=== PATIENT | male | born 1985 | race Caucasian/White ===

== ENCOUNTER → 2024-01-02 10:04 | Outpatient (REF) | payer OTHER, SELFPAY | LOC: RAD 10:04 | PROVIDERS: ATTENDING PHYSICIAN Physician Assistant | DX: R05.1 Acute cough (principal) | CPT/HCPCS: 71046 ==

== ENCOUNTER 2024-08-15 15:37 | Inpatient (IN) | payer OTHER, SELFPAY ==
[2024-08-15] VITALS (25 sets, daily range): BP systolic 90–140; BP diastolic 45–103; BMI 32.5
--- NOTE | 2024-08-15 16:00 | PTCARENOTE ---
Received patient from [facility] on stretcher. Denies chest pain at present. VSS. Placed on monitor. Labs obtained. Radial band on RT radial site. Hand with good cap refill. Nitro drip infusing on admission . Settled into room
--- NOTE | 2024-08-15 16:08 | CON.CAR ---
Addendum entered and electronically signed by Janes Montoya MD 08/16/24 08:05:
Please use as H&P
Addendum entered and electronically signed by Janes Montoya MD 08/15/24 17:19:
I saw and examined the patient.
The Wood Tank Erector's note was reviewed and I agree with the note.
Comment: Briefly, 39-year-old man past medical history of hypertension, hyperlipidemia and strong family history of premature CAD who presented to [facility] with chest discomfort and found to have severe range blood pressures. Troponin was
elevated and patient was medically managed with heparin drip as well as IV nitroglycerin and loaded with aspirin/Plavix. Echo from [place] reportedly with LVEF 48% and inferolateral hypokinesis. He underwent invasive coronary angiography today and
was found to have multivessel coronary disease. Patient subsequently transferred here for CT surgery evaluation.
At present he is resting comfortably in bed in the CVICU, eating [employer]
Not experiencing any chest discomfort at present
Currently on nitro drip, explained that we can uptitrate if chest pain recurs
Continue aspirin
Maintain on heparin drip while here
Awaiting Plavix washout
High intensity statin
Beta-lucas
Appreciate CT surgery input regarding possible revascularization
Discussed with CT surgery team as well as spouse at bedside
Rest per Xuan Herbert
Original Note:
Consultation
Consultation Request
Date/Time Consultation Requested: 08/15/2024
Date/Time Consultation Performed: 08/15/2024
Performing Provider: Xuan Herbert PA-C for Dr. Montoya
Reason for Consultation: Multivessel coronary artery disease, NSTEMI
Medical History
-
History of Present Illness:
This serves as admission H&P
Patient is a 39-year-old male with past medical history significant for hypertension, hyperlipidemia, prior opioid/substance abuse, current vaping of nicotine, hepatitis C and family history of coronary artery disease with father dying of [place] in his
early 30s who presented to [facility] on 08/15/2024 with chest pain with radiation to left arm and lightheadedness x 2 days. Patient's blood pressure on arrival 225/145. Initial EKG showed sinus rhythm with no significant changes. Patient
was found to have abnormal troponin and was placed on nitro drip, heparin drip and loaded with Plavix 600 mg and aspirin 325 mg and ED. Patient underwent urgent [facility] cardiac catheterization and was found to have multivessel coronary
artery disease. Patient then transferred to [facility] for CT surgery evaluation.
At time of this evaluation patient is on IV heparin and nitroglycerin. He is chest pain-free.
Past medical history:
Hyperlipidemia
Hypertension
GERD
Hepatitis C
Opioid abuse, last use February 2013
Kidney stone s/p extraction
Strong family history of premature CAD
Past Medical History
Past Medical History: Other (See HPI)
Past Surgical History: Appendectomy, Cholecystectomy and Other (Kidney stone extraction)
Social History
Tobacco: Vaping (former tobacco but currently vapes)
Alcohol: None
Drug: Former User (Heroin with reported last use February 2013)
Personal:
Living: With Family ( and son)
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
Family History
Family History: Early CAD (Dad had first coronary event at age 24, of [place] in early 30's)
Allergies / Home Medications
Allergy/AdvReac Type Severity Reaction Status Date / Time
No Known Allergies Allergy Verified 11/01/21 11:18
�Medication �Instructions �Recorded �Confirmed �Type
Heroin DAILY 02/20/13 02/20/13 History
ibuprofen 600 mg tablet 600 mg PO Q6H #30 tabs 01/09/15 Rx
cyclobenzaprine 10 mg tablet 10 mg PO TIDPRN PRN muscle spasm 12/22/15 Rx
#15 tabs
prednisone 10 mg tablet 10 mg PO DAILY 12 days 12/22/15 Rx
cyclobenzaprine 10 mg tablet 10 mg PO TIDPRN PRN back pain #30 08/14/16 Rx
tabs
prednisone 20 mg tablet 40 mg (2 x 20 mg) PO DAILY #8 tabs 06/25/16 Rx
Review of Systems
-
History Source: Patient
All other systems: Negative unless noted
Physical Exam
Vital Signs
Temp Pulse Resp BP Pulse Ox
97.4 F 77 16 108/71 96
08/15/24 15:47 08/15/24 15:47 08/15/24 15:47 08/15/24 15:47 08/15/24 15:47
GEN: No distress, awake, Ox3
HEENT: supple, anicteric, mmm
LUNGS: CTA, no wheezes/rales
CV: Reg, S1/S2, no murmur, rub or gallop
ABD: soft, BS+, NT/ND
EXT: No edema, clubbing or cyanosis
NEURO: Gross non-focal
SKIN: No rash, warm, dry, pink
Lab Results
Pending
Labs reviewed from [facility]
Impression / Plan
-
PCP: Marya Dior
Pattern Designer: Dr. Traylor
Impression:
Presented to [facility] 08/15/2024 with severe chest pain radiating into left arm and lightheadedness x 2 days
Hypertensive urgency
NSTEMI with Abnormal troponin
Multivessel coronary artery disease on cath 08/15/[address] chest/abd/pelvis
Hyperlipidemia
Hypertension
Hepatitis C
Prior Opioid/substance abuse
Kidney stone
History of noncompliance
Strong family history of premature CAD
Echo 08/15/2024 ([facility]): EF 48% with global hypokinesis more pronounced inferolaterally.� Concentric remodeling of LV.� Right ventricular cavity size at upper limits of normal with low normal systolic function.� Normal biatrial size.� No significant
valvular disease.
Cardiac catheterization 08/15/2024 ([facility]): LM: NL.� LAD proximal 30% followed by mid 90% stenosis.� Ramus: Proximal 95% stenosis with some ostial involvement.� Left circumflex mid 60 to 70% stenosis followed by ectatic dilation.� OM mid 70 to 80%
stenosis involving distal bifurcation.� RCA: Heavily calcified with severe disease proximal 60 to 70% and mid 80 to 90% at acute marginal
Plan:
-Presented to [facility] 08/15/2024 with severe chest pain radiating into left arm and lightheadedness x 2 days
-Abnormal troponin/NSTEMI, continue to trend to peak. Check EKG and follow on tele
-Found to have multivessel coronary artery disease on cardiac catheterization. CTS consult placed.
-Patient did get 600 mg of Plavix and 325 mg of aspirin at [place] emergency department 08/15/2024. Continue daily baby ASA. Allow for Plavix washout
-Continue IV nitroglycerin, titrate as needed for chest pain
-Start IV heparin drip per ACS protocol
-Echo as noted above shows mildly reduced ejection fraction. Patient does not have evidence of heart failure or acute volume overload on examination.
-Start Toprol 25 mg daily. Patient will need eventual LENNY/ARB. Hold now in anticipation of CT surgery after Plavix washout
-Check lipids and HgA1c in AM. Start atorvastatin 80 mg
HPI: Patient is a 39-year-old male with past medical history significant for hypertension, hyperlipidemia, prior opioid/substance abuse, current vaping of nicotine, hepatitis C and family history of coronary artery disease with father dying of [place] in
his early 30s who presented to [facility] on 08/15/2024 with chest pain with radiation to left arm and lightheadedness x 2 days. Patient's blood pressure on arrival 225/145. Initial EKG showed sinus rhythm with no significant changes.
Patient was found to have abnormal troponin and was placed on nitro drip, heparin drip and loaded with Plavix 600 mg and aspirin 325 mg and ED. Patient underwent urgent [facility] cardiac catheterization and was found to have multivessel
coronary artery disease. Patient then transferred to [facility] for CT surgery evaluation.
At time of this evaluation patient is on IV heparin and nitroglycerin. He is chest pain-free.
Data Reviewed
-
EKG: Report Reviewed by me, Discussed with Physician, Discussed with Nurse and Discussed with Patient
Medical Tests (Nuc Med, Echo etc): Report Reviewed by me (from [facility]), Discussed with Physician, Discussed with Nurse and Discussed with Patient
Labs: Labs Reviewed by me (from [facility]), Discussed with Physician, Discussed with Nurse, Discussed with Patient and Discussed with Family
[2024-08-15 16:40] LABS: Hematocrit 44.6 % (39.0-52.0); Hemoglobin 15.2 g/dL (13.0-18.0); Mean Corp Hgb Conc. 34.1 g/dL (33.0-37.0); Mean Corpuscular Volume 82.3 fL (80.0-94.0); Mean Platelet Volume 11.2 fL (7.4-10.4); Platelet Count 187 10^3/uL (130-400); Red Blood Cell Count 5.42 10^6/uL (4.70-6.10)
--- NOTE | 2024-08-15 16:41 | CM ---
CM following for DC planning needs.
Pt. transferred to from [facility].
Plan is for CT Surgery.
CM met w/ patient at bedside. Pt. resides with spouse in a private, 1 story home. There are no steps to enter the home. Functionally, patient is indep. w/ ADLs, mobility without the use of any assisted device. Pt. has a RW and SPC at home but does
not use these.
Pt. does not have medical insurance at this time.
[facility]
CM to follow up next wk.
Anticipate DC to home w/ CT Transitional Care RN.
CM to follow.
--- NOTE | 2024-08-15 16:47 | CONSULT.CT ---
Addendum entered and electronically signed by KIAN Fung 08/15/24 19:41:
Edit: patient quit smoker >3yrs ago
Original Note:
Consultation
-
Date/Time Consultation Requested: 08/15/241644
Date/Time Consultation Performed: 08/15/241646
Requesting Provider: Michael Marquis
Performing Provider: Day LANGSTON for Eva HUI
Reason for Consultation: CABG Eval
Patient History
Physicians
Family Physician: Andrew Govea
Outpatient Service Line Bus Cleaner: Michael Marquis
Inpatient Service Line Bus Cleaner: Jack
History of Present Illness
This is a 39-year-old male with past medical history significant for family history CAD (father from [place] at age 30), hypertension, hyperlipidemia, smoker, history of IV drug abuse/opioid dependence, kidney stones, and hepatitis C that presented
to [facility] on 08/14 with complaints of intermittent severe chest pain for the last 2 days. He stated that prior to his admission to [facility] he was having some chest pain that was associated with dizziness and lightheadedness
and he may have syncopized. When he went to [facility] he was found to be hypertensive (225/145) and based on the history they felt that he was at risk for a aortic dissection so he was sent for an emergent CAT scan. CAT scan did not show
an aortic dissection, aneurysm, or pulmonary embolism. EKG was performed which was negative for ischemic changes at the time and initial troponins were negative. Subsequent troponins were were positive so a heparin infusion was started. He was
subsequently taken to the cardiac Cooling Room Attendant by Dr. Marquis. During the left heart cath he was found to have significant coronary artery disease. Nitroglycerin infusion was started for chest pain management and patient was transferred to [place] [facility] for CABG evaluation.
Of note, while in the ER patient was given 600 mg of Plavix. Also the patient was educated on the importance of a heart healthy diet. At the time of my interview patient was eating [employer].
Past Medical History
Past Medical History: Angina, CAD, HTN, Hypercholesterolemia and [place]
untreated hepatitis C ~ 25 yrs ago
opiod dependence 11.5 yrs ago
Past Surgical History
Past Surgical History: Appendectomy
Family History
Mother: N/A
Father: at Age (30)
Family Medical History: Early CAD and CAD
Social History
Alcohol: Former (quit 25 yrs ago)
Drug: Former User (quit 25 yrs ago)
Tobacco: Vaping (quit 25 yrs ago)
Personal:
Living: With Spouse
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
Allergies
Allergy/AdvReac Type Severity Reaction Status Date / Time
No Known Allergies Allergy Verified 11/01/21 11:18
Home Medications
Home Medications
�Medication �Instructions �Recorded
No Meds [No Current Medications] 08/15/24
Review of Systems
-
History Source: Patient
General: Reports No Symptoms
HEENT: Reports No Symptoms
Respiratory: Reports No Symptoms
Cardiac: Reports Chest Pain, Nausea and Vomiting
Abdomen/GI: Reports No Symptoms
: Reports No Symptoms
Musculoskeletal: Reports No Symptoms
Skin: Reports No Symptoms
Neurological: Reports Syncope and Dizzy
Vascular: Reports No Symptoms
Physical Exam
Vital Signs
Temp 97.4 F 08/15/24 15:47
Temp route: Oral 08/15/24 15:47
Pulse 77 08/15/24 15:47
Rhythm: Normal sinus rhythm 08/15/24 15:47
Resp Rate 16 08/15/24 15:47
Blood pressure LEFT upper extremity: 124/85 08/15/24 15:51
Blood pressure RIGHT upper extremity: 133/97 08/15/24 15:51
Blood pressure 108/71 08/15/24 15:47
Blood pressure extremity used: Right upper arm 08/15/24 15:51
Position: Lying 08/15/24 15:51
MAP (cuff-Josesito Monitor) 84 08/15/24 15:42
SaO2 96 08/15/24 15:47
Oxygen Mode of Delivery Room air 08/15/24 15:47
Can the patient verbally communicate their pain? Yes 08/15/24 15:54
Actual Weight 121 kg 08/15/24 16:35
Body Mass Index (BMI) 32.5 08/15/24 16:35
Labs
Lab Results
08/15/24 16:30
PT 13.6 Sec (11.4-14.6) 08/15/24 16:28
INR 1.06 08/15/24 16:28
APTT 58.7 Sec (23.4-35.0) H 08/15/24 16:28
Exam
General: Well Developed and Well Nourished
HEENT: PERRLA
Respiratory: Clear
Cardiac: S1/S2
GI: Soft
Rectal: Deferred by Provider
Skin: Warm and Dry
Neuro: AO x 3
Lymph: No Lymphadenopathy
Psych: Calm
Assessment / Plan
-
39-year-old male with past medical history listed above presented to [facility] with chest pain. Ruled in for a NSTEMI and was taken to the cardiac Cooling Room Attendant where multivessel disease was found. He was transferred to [facility] for
CABG evaluation.
#CAD
#NSTEMI
-Patient's last dose of Plavix was 08/15 (600 mg given by [facility]'s emergency room)
-Patient's case will be discussed with attending physician. Tentative surgery date will be August 20.
-Routine preoperative cardiothoracic surgery orders will be initiated.
-STS risk stratification score will be calculated after preoperative testing is complete
-Continue nitroglycerin and heparin gtt per cardiology
-Continue aspirin
#Hyperlipidemia
-Patient was eating Niuean fries and crispy chicken sandwich from [employer] and he was educated on the importance of a heart healthy diet
-Lipid panel was performed at [facility]
-Continue Lipitor
#Hx of Hepatitis C
- will repeat Hep C in AM
[2024-08-15 16:50] LABS: INR 1.06; PT 13.6 Sec (11.4-14.6)
[2024-08-15 16:51] LABS: APTT 58.7 Sec (23.4-35.0)
--- NOTE | 2024-08-15 17:01 | PTCARENOTE ---
Rt radial hemostasis band removed after weaning off per protocol. Skin warm and dry., Radial pulse palpable.
--- NOTE | 2024-08-15 17:11 | PTCARENOTE ---
Pt c/o 01/19 'shooting star' like pain in middle chest area, states same pain with cold air feeling he had originally. Pt placed on 2 L NC prophylactically.
Nitro drip titrated for chest discomfort.
[2024-08-15] MEDS: HEPARIN 25000 UNITS/250 ML IV (17:23)
[2024-08-15] MEDS: LIPITOR 80 MG PO (17:23)
[2024-08-15 17:28] LABS: Troponin I 0.725 ng/ml
[2024-08-15 17:39] LABS: Blood Urea Nitrogen 16 mg/dl (9-20); Calcium 9.1 mg/dl (8.4-10.2); Carbon Dioxide 25 mmol/L (22-30); Chloride 102 mmol/L (98-107); Estimated Creatinine Clearance > 125 ml/min; Glucose 125 mg/dl (70-99); Potassium 4.1 mmol/L (3.5-5.1); Sodium 140 mmol/L (135-145); eGFR > 60.00
[2024-08-15] MEDS: ZOFRAN 4 MG IV (18:12)
[2024-08-15] MEDS: TYLENOL 650 MG PO (18:17)
--- NOTE | 2024-08-15 18:22 | PTCARENOTE ---
Rang call junior c/o 'extreme' nausea. Pt vomited a large amount of undigested food. IV zofran administered. Pt c/o 8/10 chest pain. Not diaphoretic on exam. VSS. Nitro drip increased as able. Pt then c/o head ache, given tylenol as ordered.
CT BARREL LATHE OPERATOR in room . EKG obtained. Resting.
[2024-08-15] MEDS: PROTONIX IV 40 MG IV (18:34)
[2024-08-15] MEDS: NSS (PRESERVATIVE FREE) 10 ML IV (18:35)
[2024-08-15] MEDS: MORPHINE SULFATE 2 MG IV ×2 (18:39→22:22)
--- NOTE | 2024-08-15 20:30 | PTCARENOTE ---
Patient received in bed. Mildly restless. No c/o chest pain. Patient A+A+Ox3. No neurological deficits noted. IV Heparin gtt and IV Nitro gtt. Room air. SpO2 99%. No c/o SOB. Sinus Rhythm. Heart rate 80's. Blood pressure 128/68 (85).
Normoactive bowel sounds. No c/o nausea. No vomiting. Voiding without difficulty. Assessment as documented.
[2024-08-15 22:27] LABS: APTT 43.4 Sec (23.4-35.0)
--- NOTE | 2024-08-15 23:00 | PTCARENOTE ---
Troponin result 1.010. PTT result 43.4. In accordance with IV Heparin protocol for Cardiac TX/Acute Coronary, IV Heparin rate increased by 200 units/hr from 1,000 units/hr (10 ml/hr) to 1,200 units/hr (12 ml/hr). PTT in 6hrs. Patient sleeping
without difficulty. Assessment as documented.
[2024-08-16] VITALS (24 sets, daily range): BP systolic 79–144; BP diastolic 61–114; BMI 32.9
[2024-08-16] MEDS: LOPRESSOR 5 MG IV ×4 (00:25→17:34)
[2024-08-16] MEDS: TYLENOL 650 MG PO ×3 (01:26→19:41)
[2024-08-16] MEDS: ATIVAN 0.5 MG IV (01:27)
[2024-08-16] MEDS: NSS (PRESERVATIVE FREE) 0.25 ML IV (01:28)
--- NOTE | 2024-08-16 02:00 | PTCARENOTE ---
Patient given IV Ativan 0.5mg for c/o anxiety - Positive relief provided. Patient back to sleep. No c/o chest pain, pressure or discomfort. Troponin 1.090. No further changes from previous assessment.
[2024-08-16] MEDS: MORPHINE SULFATE 2 MG IV ×3 (05:32→19:42)
[2024-08-16 05:47] LABS: APTT 52.2 Sec (23.4-35.0)
[2024-08-16 05:58] LABS: ALT (SGPT) 31 U/L (0-50); AST (SGOT) 35 U/L (17-59); Albumin 3.6 g/dl (3.5-5.0); Alkaline Phosphatase 82 U/L (38-126); Blood Urea Nitrogen 15 mg/dl (9-20); Calcium 8.7 mg/dl (8.4-10.2); Carbon Dioxide 26 mmol/L (22-30); Chloride 102 mmol/L (98-107); Estimated Creatinine Clearance > 125 ml/min; Glucose 95 mg/dl (70-99); HDL Cholesterol 38 mg/dl; LDL Cholesterol, Calculated 194 mg/dl; Potassium 4.2 mmol/L (3.5-5.1); Sodium 138 mmol/L (135-145); Total Bilirubin 0.4 mg/dl (0.2-1.3); Total Cholesterol 254 mg/dl (50-199); Total Protein 6.6 g/dl (6.3-8.2); Triglyceride 111 mg/dl (10-149); Very Low Density Lipoprotein 22 mg/dl (0-30); eGFR > 60.00
[2024-08-16 06:00] LABS: Troponin I 0.909 ng/ml
--- NOTE | 2024-08-16 08:00 | PTCARENOTE ---
Received patient for 7a-7p shift. Pt AAOx3, without complaints. NSR on monitoring specialist, VSS. Nitro gtt at 40mcg/min, Heparin gtt at 1400u/hr, infusing via PIV in L lower forearm without issues. Patient denies chest pain at this time. R radial cath
site c/d/i, normal pulse palpable, no hematoma noted. Medications administered as ordered. Instructed patient on activity limitations, patient verbalized understanding. Will continue to monitor.
--- NOTE | 2024-08-16 08:47 | W.PN.CARDCBS ---
Addendum entered and electronically signed by Janes Montoya MD 08/16/24 18:33:
I saw and examined the patient.
The Executive Business Coach's note was reviewed and I agree with the note.
Comment: Briefly, 39-year-old man presented to [facility] with NSTEMI transferred to [place] for surgical evaluation
Episode of chest pain yesterday evening but no complaints this morning when evaluated on morning rounds
Continue IV nitro, can uptitrate for worsening chest gain
Heparin drip, aspirin, BB and high intensity statin
Appreciate CT surgery input
Original Note:
Today's Communication / Plan
-
Continue IV heparin and IV nitroglycerin
Continue aspirin, statin, Toprol
For PFTs and carotid duplex
Tentative OR date 08/20/2024 after Plavix washout
Impression / Plan
-
PCP: Marya Dior
Repairer Hairspring: Dr. Traylor
Impression:
Presented to [facility] 08/15/2024 with severe chest pain radiating into left arm and lightheadedness x 2 days
Hypertensive urgency
NSTEMI with Abnormal troponin
Multivessel coronary artery disease on cath 08/15/[address] chest/abd/pelvis
Hyperlipidemia
Hypertension
Hepatitis C
Prior Opioid/substance abuse
Kidney stone
History of noncompliance
Strong family history of premature CAD
Echo 08/15/2024 ([facility]): EF 48% with global hypokinesis more pronounced inferolaterally.� Concentric remodeling of LV.� Right ventricular cavity size at upper limits of normal with low normal systolic function.� Normal biatrial size.� No significant
valvular disease.
Cardiac catheterization 08/15/2024 ([facility]): LM: NL.� LAD proximal 30% followed by mid 90% stenosis.� Ramus: Proximal 95% stenosis with some ostial involvement.� Left circumflex mid 60 to 70% stenosis followed by ectatic dilation.� OM mid 70 to 80%
stenosis involving distal bifurcation.� RCA: Heavily calcified with severe disease proximal 60 to 70% and mid 80 to 90% at acute marginal
Plan:
-Presented to [facility] 08/15/2024 with severe chest pain radiating into left arm and lightheadedness x 2 days
-Still with some intermittent epigastric/chest discomfort. Seems to occur more at rest than with exertion
-Abnormal troponin/NSTEMI, peak 1.090.Continue to monitor on tele
-Found to have multivessel coronary artery disease on cardiac catheterization.Evaluated by CT surgery who feels he is good candidate for CABG. Tentative OR date 08/30/2024 to allow for Plavix washout.
-Preop evaluation ongoing with PFTs and carotid duplex ordered
-Patient did get 600 mg of Plavix and 325 mg of aspirin at [place] emergency department 08/15/2024. Continue daily baby ASA. Allow for Plavix washout
-Continue IV nitroglycerin, titrate as needed for chest pain
-Continue IV heparin drip per ACS protocol
-Echo as noted above shows mildly reduced ejection fraction. Patient does not have evidence of heart failure or acute volume overload on examination.
-Continue Toprol 25 mg daily. Patient will need eventual LENNY/ARB. Hold now in anticipation of CT surgery 08/20 after Plavix washout
-Prestatin lipids 08/16/2024 TC 254, HDL 38, LDL 194, triglycerides 111. Started atorvastatin 80 mg 08/15/2024.
-Hemoglobin A1c pending
-Educated on importance of smoking cessation as history of vaping. Also discussed importance of adhering to heart healthy low-fat/low carbohydrate diet.
HPI: Patient is a 39-year-old male with past medical history significant for hypertension, hyperlipidemia, prior opioid/substance abuse, current vaping of nicotine, hepatitis C and family history of coronary artery disease with father dying of [place] in
his early 30s who presented to [facility] on 08/15/2024 with chest pain with radiation to left arm and lightheadedness x 2 days. Patient's blood pressure on arrival 225/145. Initial EKG showed sinus rhythm with no significant changes.
Patient was found to have abnormal troponin and was placed on nitro drip, heparin drip and loaded with Plavix 600 mg and aspirin 325 mg and ED. Patient underwent urgent [facility] cardiac catheterization and was found to have multivessel
coronary artery disease. Patient then transferred to [facility] for CT surgery evaluation.
At time of this evaluation patient is on IV heparin and nitroglycerin. He is chest pain-free.
Progress Note - Repairer Hairspring
Subjective
Date of Service: August 16, 2024
Still with some intermittent epigastric/chest discomfort. Seems to occur more at rest than with exertion. Otherwise feels well
Objective
Labs:
08/15/24 16:43
08/16/24 05:18
Labs
Hgb Cancelled 08/15/24 16:43
Hct Cancelled 08/15/24 16:43
Plt Count Cancelled 08/15/24 16:43
PT 13.6 Sec (11.4-14.6) 08/15/24 16:28
INR 1.06 08/15/24 16:28
APTT 52.2 Sec (23.4-35.0) H 08/16/24 05:18
Sodium 138 mmol/L (135-145) 08/16/24 05:18
Potassium 4.2 mmol/L (3.5-5.1) 08/16/24 05:18
BUN 15 mg/dl (9-20) 08/16/24 05:18
Creatinine 1.1 mg/dL (0.7-1.3) 08/16/24 05:18
Glucose 95 mg/dl (70-99) 08/16/24 05:18
Troponins
08/15/24 08/15/24 08/15/24
16:48 18:33 22:04
Troponin I 0.725 H* Cancelled 1.010 H* D
08/15/24 08/16/24 08/16/24
22:33 01:42 05:18
Troponin I Cancelled 1.090 H* 0.909 H*
Vital Signs and I&O:
Vital Signs
Temp Pulse Resp BP Pulse Ox
98.2 F 77 16 10484 97
08/16/24 04:00 08/16/24 07:00 08/16/24 05:00 08/16/24 07:00 08/16/24 05:00
Vital Signs
Temp Pulse Resp BP Pulse Ox
98.2 F 77 16 10484 97
08/16/24 04:00 08/16/24 07:00 08/16/24 05:00 08/16/24 07:00 08/16/24 05:00
Intake & Output
08/14/24 08/15/24 08/16/24 08/17/24
06:59 06:59 06:59 06:59
Intake Total 715.0 / 715.0
Output Total 750 / 750
Balance -35.0 / -35.0
Physical Exam
Physical Exam
GEN: No distress, awake, Ox3
HEENT: supple, anicteric, mmm
LUNGS: CTA, no wheezes/rales
CV: Reg, S1/S2, no murmur, rub or gallop
ABD: soft, BS+, NT/ND
EXT: No edema, clubbing or cyanosis
NEURO: Gross non-focal
SKIN: No rash, warm, dry, pink
[2024-08-16] MEDS: LOW STRENGTH ASPIRIN 81 MG PO (08:55)
[2024-08-16] MEDS: TOPROL XL PO (08:55)
[2024-08-16] MEDS: PROTONIX IV 40 MG IV (08:56)
[2024-08-16] MEDS: NSS (PRESERVATIVE FREE) 10 ML IV (09:00)
--- NOTE | 2024-08-16 09:30 | W.PN.UPDATE ---
Update Note
Progress Note Update
Patient seen with Dr. Velasquez this morning. cont Heparin and ntg gtt was CP free at the time. Tentative surgery date is monday 08/20.
[2024-08-16 10:14] LABS: Glycohemoglobin (HgbA1c) 5.4 % (4.0-5.6)
[2024-08-16 12:26] LABS: Hematocrit 40.6 % (39.0-52.0); Hemoglobin 14.7 g/dL (13.0-18.0); Mean Corp Hgb Conc. 36.2 g/dL (33.0-37.0); Mean Corpuscular Hgb 29.2 pg (27.0-31.0); Mean Corpuscular Volume 80.7 fL (80.0-94.0); Mean Platelet Volume 11.7 fL (7.4-10.4); Platelet Count 122 10^3/uL (130-400); Red Blood Cell Count 5.03 10^6/uL (4.70-6.10); Red Cell Dist. Width 12.4 % (11.5-14.5); White Blood Cell Count 5.6 10^3/uL (4.8-10.8)
[2024-08-16 12:33] LABS: APTT 44.9 Sec (23.4-35.0)
[2024-08-16 12:37] LABS: Troponin I 0.713 ng/ml
[2024-08-16] MEDS: HEPARIN 25000 UNITS/250 ML IV (13:07)
--- NOTE | 2024-08-16 13:10 | PTCARENOTE ---
Platelets dropped from 187 yesterday [address] Montoya aware, orders to continue heparin drip per protocol as ordered. Will continue to monitor.
[2024-08-16] MEDS: NITROGLYCERIN PREMIX 250 IV (13:11)
[2024-08-16] MEDS: LIPITOR 80 MG PO (17:34)
--- NOTE | 2024-08-16 17:44 | PTCARENOTE ---
Patient maintained on Nitro at 40 mcg/min and Heparin at 1600 units/hr via L forearm piv without issues. VSS, oob in chair, family at bedside. Medications administered as ordered. Will continue to monitor.
[2024-08-16 18:59] LABS: APTT 69.7 Sec (23.4-35.0)
--- NOTE | 2024-08-16 19:19 | TRANSFER ---
Patient transferred from CVICU 0 to IVU room 2252. Pt ambulated to room with RN, placed on IVU monitor tech, tolerated without issues. VSS. All belongings and chart transferred with patient. Report given to receiving IVU RN jorge Sosa
rounds complete and IV drips verified with receiving RN in handoff. Patient's at bedside at time of transfer.
--- NOTE | 2024-08-16 21:50 | PTCARENOTE ---
Pt received at change of shift from SYNTHETIC DEPARTMENT SUPERVISOR. ISIDRA, EDGARR on tele with HR 70s-80s. Nitro gtt currently infusing at 40mcg and Heparin at 1700units. No complaints of CP at this time. Pt with complaints of 8/10 back pain radiating down leg which he
states is a chronic issue. PRN pain medication administered per orders, see MAR. Pt ambulating independently in room without difficulty. Plan of care discussed and pt. verbalizes understanding, however refusing printed educational materials at
this time. Can make needs known. Call junior within reach.
[2024-08-17 01:13] VITALS: BP 159/100
[2024-08-17] MEDS: ATIVAN 0.5 MG IV (01:17)
[2024-08-17] MEDS: TYLENOL 650 MG PO ×3 (01:17→16:34)
[2024-08-17] MEDS: NSS (PRESERVATIVE FREE) 0.25 ML IV (01:18)
[2024-08-17 02:55] LABS: APTT 100.2 Sec (23.4-35.0)
[2024-08-17 03:10] LABS: Hemoglobin 14.2 g/dL (13.0-18.0); Mean Corp Hgb Conc. 35.5 g/dL (33.0-37.0); Mean Corpuscular Hgb 28.2 pg (27.0-31.0); Mean Corpuscular Volume 79.5 fL (80.0-94.0); Mean Platelet Volume 11.4 fL (7.4-10.4); Platelet Count 167 10^3/uL (130-400); Red Blood Cell Count 5.03 10^6/uL (4.70-6.10); Red Cell Dist. Width 12.7 % (11.5-14.5); White Blood Cell Count 6.5 10^3/uL (4.8-10.8)
[2024-08-17] MEDS: HEPARIN 25000 UNITS/250 ML IV ×2 (03:43→18:52)
[2024-08-17 03:58] LABS: Blood Urea Nitrogen 15 mg/dl (9-20); Calcium 8.8 mg/dl (8.4-10.2); Carbon Dioxide 26 mmol/L (22-30); Chloride 102 mmol/L (98-107); Estimated Creatinine Clearance > 125 ml/min; Glucose 96 mg/dl (70-99); Sodium 138 mmol/L (135-145); eGFR > 60.00
[2024-08-17 07:17] VITALS: BP 132/83
[2024-08-17] MEDS: LOW STRENGTH ASPIRIN 81 MG PO (08:17)
[2024-08-17] MEDS: TOPROL XL 25 MG PO (08:18)
[2024-08-17] MEDS: MORPHINE SULFATE 2 MG IV ×3 (08:35→20:50)
[2024-08-17] MEDS: PROTONIX IV 40 MG IV (08:44)
[2024-08-17] MEDS: SENOKOT-S 1 TABLET PO (08:44)
[2024-08-17] MEDS: NSS (PRESERVATIVE FREE) 10 ML IV (08:45)
[2024-08-17 09:30] LABS: APTT 91.3 Sec (23.4-35.0)
[2024-08-17 12:13] VITALS: BP 108/64
--- NOTE | 2024-08-17 12:53 | W.PN.CARDCBS ---
Today's Communication / Plan
-
Continue aspirin, high intensity statin, beta-lucas and heparin drip
Impression / Plan
-
PCP: Marya Dior
Shift Supervisor: Dr. Traylor
Impression:
Presented to [facility] 08/15/2024 with severe chest pain radiating into left arm and lightheadedness x 2 days
Hypertensive urgency
NSTEMI with Abnormal troponin
Multivessel coronary artery disease on cath 08/15/[address] chest/abd/pelvis
Hyperlipidemia
Hypertension
Hepatitis C
Prior Opioid/substance abuse
Kidney stone
History of noncompliance
Strong family history of premature CAD
Echo 08/15/2024 ([facility]): EF 48% with global hypokinesis more pronounced inferolaterally.� Concentric remodeling of LV.� Right ventricular cavity size at upper limits of normal with low normal systolic function.� Normal biatrial size.� No significant
valvular disease.
Cardiac catheterization 08/15/2024 ([facility]): LM: NL.� LAD proximal 30% followed by mid 90% stenosis.� Ramus: Proximal 95% stenosis with some ostial involvement.� Left circumflex mid 60 to 70% stenosis followed by ectatic dilation.� OM mid 70 to 80%
stenosis involving distal bifurcation.� RCA: Heavily calcified with severe disease proximal 60 to 70% and mid 80 to 90% at acute marginal
Plan:
-Presented to [facility] 08/15/2024 with severe chest pain radiating into left arm and lightheadedness x 2 days
-Abnormal troponin/NSTEMI, peak 1.090.
-Found to have multivessel coronary artery disease on cardiac catheterization.
-Appreciate CT surgery input, Tentative OR for CABG this week following Plavix washout
-Still with some intermittent chest pains/arm pain, maintained on nitro gtt, PRN morphine ordered
-Monitor on tele
-[id number] daily, BB, high intensity statin and heparin gtt
-Echo as noted above shows mildly reduced ejection fraction. Patient does not have evidence of heart failure or acute volume overload on examination.
Discussed with nursing
HPI: Patient is a 39-year-old male with past medical history significant for hypertension, hyperlipidemia, prior opioid/substance abuse, current vaping of nicotine, hepatitis C and family history of coronary artery disease with father dying of [place] in
his early 30s who presented to [facility] on 08/15/2024 with chest pain with radiation to left arm and lightheadedness x 2 days. Patient's blood pressure on arrival 225/145. Initial EKG showed sinus rhythm with no significant changes.
Patient was found to have abnormal troponin and was placed on nitro drip, heparin drip and loaded with Plavix 600 mg and aspirin 325 mg and ED. Patient underwent urgent [facility] cardiac catheterization and was found to have multivessel
coronary artery disease. Patient then transferred to [facility] for CT surgery evaluation.
At time of this evaluation patient is on IV heparin and nitroglycerin. He is chest pain-free.
Progress Note - Shift Supervisor
Subjective
Date of Service: August 17, 2024
No acute overnight events. Patient resting comfortably in the IVU, no recurrence of his chest discomfort. He is reporting some intermittent arm and leg pain. Breathing is comfortable. Has been ambulating without significant symptoms.
Objective
Labs:
08/17/24 02:30
08/17/24 02:30
Labs
Hgb 14.2 g/dL (13.0-18.0) 08/17/24 02:30
Hct 40.0 % (39.0-52.0) 08/17/24 02:30
Plt Count 167 10^3/uL (130-400) D 08/17/24 02:30
PT 13.6 Sec (11.4-14.6) 08/15/24 16:28
INR 1.06 08/15/24 16:28
APTT 91.3 Sec (23.4-35.0) H 08/17/24 09:07
Sodium 138 mmol/L (135-145) 08/17/24 02:30
Potassium 4.0 mmol/L (3.5-5.1) 08/17/24 02:30
BUN 15 mg/dl (9-20) 08/17/24 02:30
Creatinine 0.9 mg/dL (0.7-1.3) 08/17/24 02:30
Glucose 96 mg/dl (70-99) 08/17/24 02:30
Troponins
08/15/24 08/15/24 08/15/24
16:48 18:33 22:04
Troponin I 0.725 H* Cancelled 1.010 H* D
08/15/24 08/16/24 08/16/24
22:33 01:42 05:18
Troponin I Cancelled 1.090 H* 0.909 H*
08/16/24 08/16/24
09:00 11:55
Troponin I Cancelled 0.713 H*
Vital Signs and I&O:
Vital Signs
Temp Pulse Resp BP Pulse Ox
98.3 F 90 20 132/83 98
08/17/24 12:11 08/17/24 08:00 08/17/24 12:11 08/17/24 07:17 08/17/24 12:11
Vital Signs
Temp Pulse Resp BP Pulse Ox
98.3 F 90 20 132/83 98
08/17/24 12:11 08/17/24 08:00 08/17/24 12:11 08/17/24 07:17 08/17/24 12:11
Intake & Output
08/15/24 08/16/24 08/17/24 08/18/24
06:59 06:59 06:59 06:59
Intake Total 715.0 / 715.0 782 / 782
Output Total 750 / 750 1440 / 1440
Balance -35.0 / -35.0 -658 / -658
Physical Exam
Physical Exam
Gen: NAD, AAOx3
HEENT: NC/AT, sclera anicteric
Neck: No JVD
CV: RRR, NL s1/s2, no M/R/G
Lungs: CTAB
Abd: S/ND
Ext: No LE edema
Skin: Warm, dry
Neuro: Non-focal
--- NOTE | 2024-08-17 15:54 | PTCARENOTE ---
Pt received this am with no c/o of any chest pain or sob. Pt did c/o of left arm, hand and bilateral leg pain to hips taking IV morphine 2mg with relief. Medicated this am with 2 tylenol for c/o of a headache with relief. Pt ambulating in the room
and hallway.
[2024-08-17 16:20] VITALS: BP 157/73
[2024-08-17] MEDS: LIPITOR 80 MG PO (17:11)
--- NOTE | 2024-08-17 19:17 | PTCARENOTE ---
Pt c/o of sever headache, medicated with tylenol as ordered with no relief. Pt not due for the q6 hour morphine at this time. Nitro decreased to 20mcg.
[2024-08-17 20:52] VITALS: BP 146/83
--- NOTE | 2024-08-17 23:08 | PTCARENOTE ---
Pt remains SR on tele with HR 80s-90s. Heparin currently infusing at 1700units/hr and Nitro at 20mcg/min. Pt with complaints of 10/10 headache. Morphine administered per order, see MAR. No complaints of CP at this time. R radial cath site c/d/i
with no complications noted. Pt ambulating independently in room. Can make needs known. Call junior within reach.
[2024-08-17 23:15] VITALS: BP 133/70
[2024-08-18] VITALS (8 sets, daily range): BP systolic 108–177; BP diastolic 73–106; BMI 32.4
[2024-08-18] MEDS: ATIVAN 0.5 MG PO ×2 (00:55→22:16)
[2024-08-18] MEDS: TYLENOL 650 MG PO ×2 (05:27→18:36)
[2024-08-18] MEDS: NITROGLYCERIN PREMIX 250 IV (05:28)
[2024-08-18 05:45] LABS: APTT 98.7 Sec (23.4-35.0)
[2024-08-18] MEDS: MORPHINE SULFATE 2 MG IV ×3 (05:55→20:49)
[2024-08-18 06:38] LABS: Blood Urea Nitrogen 10 mg/dl (9-20); Carbon Dioxide 22 mmol/L (22-30); Chloride 103 mmol/L (98-107); Estimated Creatinine Clearance > 125 ml/min; Glucose 100 mg/dl (70-99); Potassium 4.4 mmol/L (3.5-5.1); Sodium 137 mmol/L (135-145); eGFR > 60.00
--- NOTE | 2024-08-18 08:05 | W.PN.CARDCBS ---
Addendum entered and electronically signed by Susana Peck DO 08/18/24 12:38:
I saw and examined the patient.
The Anthropometrist's note was reviewed and I agree with the note.
Comment: Patient seen and examined. Offers no complaints although does have headaches upon awakening in the morning. No headache at present. No chest pain or pressure. No shortness of breath.
General: No acute distress, AAOX3
Neck: Negative JVD
Heart: Regular, positive S1/S2, no murmur
Lungs: CTA b/l, negative wheezes/rales/rhonchi
Abd: Positive BS, NT/ND, neg rebound/rigidity/guarding
Ext: no edema
Neuro: nonfocal
Plan:
Plan:
Non-STEMI with multivessel coronary artery disease by cardiac catheterization 08/15/2024
-Hemodynamically stable and chest pain-free
-Received 600 mg Plavix in the emergency department prior to cardiac catheterization on 08/15/2024
-Appreciate CT surgery input, Tentative OR for CABG 08/20 following Plavix washout
-Continue IV heparin drip.
-Continue IV nitroglycerin drip
-Monitor on tele
-Continue ASA 81mg daily
-Increase Toprol succinate 25 mg twice daily for better blood pressure/heart rate control
-Prestatin lipids 08/16/2024 TC 254, HDL 38, LDL 194, triglycerides 111. HgA1c 5.4%. Started atorvastatin 80 mg 08/15/2024.
-Eventual start of LENNY/ARB post CABG
-Echo as noted above shows mildly reduced ejection fraction. Patient does not have evidence of heart failure or acute volume overload on examination.
-PFTs and carotid duplex today
-Tobacco cessation strongly advised
Will follow with you
Original Note:
Today's Communication / Plan
-
Carotid duplex and preop PFTs today
Continue IV heparin nitro
Tentative CABG 08/20/2024
Impression / Plan
-
PCP: Marya Dior
[employer] Insurance Advisor: Dr. Traylor
Impression:
Presented to [facility] 08/15/2024 with severe chest pain radiating into left arm and lightheadedness x 2 days
Hypertensive urgency
NSTEMI with Abnormal troponin
Multivessel coronary artery disease on cath 08/15/[address] chest/abd/pelvis
Hyperlipidemia
Hypertension
Hepatitis C
Prior Opioid/substance abuse
Kidney stone
History of noncompliance
Strong family history of premature CAD
Echo 08/15/2024 ([facility]): EF 48% with global hypokinesis more pronounced inferolaterally.� Concentric remodeling of LV.� Right ventricular cavity size at upper limits of normal with low normal systolic function.� Normal biatrial size.� No significant
valvular disease.
Cardiac catheterization 08/15/2024 ([facility]): LM: NL.� LAD proximal 30% followed by mid 90% stenosis.� Ramus: Proximal 95% stenosis with some ostial involvement.� Left circumflex mid 60 to 70% stenosis followed by ectatic dilation.� OM mid 70 to 80%
stenosis involving distal bifurcation.� RCA: Heavily calcified with severe disease proximal 60 to 70% and mid 80 to 90% at acute marginal
Plan:
-Presented to [facility] 08/15/2024 with severe chest pain radiating into left arm and lightheadedness x 2 days
-Abnormal troponin/NSTEMI, peak 1.090.
-Found to have multivessel coronary artery disease on cardiac catheterization.
-Appreciate CT surgery input, Tentative OR for CABG 08/20 following Plavix washout
-Still with some intermittent chest pains/arm pain, maintained on nitro gtt, PRN morphine ordered
-Monitor on tele
-Continue ASA 81mg daily, BB and heparin gtt
-Prestatin lipids 08/16/2024 TC 254, HDL 38, LDL 194, triglycerides 111. HgA1c 5.4%. Started atorvastatin 80 mg 08/15/2024.
-Eventual start of LENNY/ARB post CABG
-Echo as noted above shows mildly reduced ejection fraction. Patient does not have evidence of heart failure or acute volume overload on examination.
-PFTs and carotid duplex today
Discussed with nursing, pt
HPI: Patient is a 39-year-old male with past medical history significant for hypertension, hyperlipidemia, prior opioid/substance abuse, current vaping of nicotine, hepatitis C and family history of coronary artery disease with father dying of [place] in
his early 30s who presented to [facility] on 08/15/2024 with chest pain with radiation to left arm and lightheadedness x 2 days. Patient's blood pressure on arrival 225/145. Initial EKG showed sinus rhythm with no significant changes.
Patient was found to have abnormal troponin and was placed on nitro drip, heparin drip and loaded with Plavix 600 mg and aspirin 325 mg and ED. Patient underwent urgent [facility] cardiac catheterization and was found to have multivessel
coronary artery disease. Patient then transferred to [facility] for CT surgery evaluation.
At time of this evaluation patient is on IV heparin and nitroglycerin. He is chest pain-free.
Progress Note - [employer] Insurance Advisor
Subjective
Date of Service: August 18, 2024
Patient seen and examined. Patient sitting up in bed eating breakfast. Patient reports he is feeling well. Over the last 2 days has noted 2-3 episodes of mild chest discomfort which are generally brief and resolve quickly.
Objective
Labs:
08/17/24 02:30
08/18/24 05:20
Labs
Hgb 14.2 g/dL (13.0-18.0) 08/17/24 02:30
Hct 40.0 % (39.0-52.0) 08/17/24 02:30
Plt Count 167 10^3/uL (130-400) D 08/17/24 02:30
PT 13.6 Sec (11.4-14.6) 08/15/24 16:28
INR 1.06 08/15/24 16:28
APTT 98.7 Sec (23.4-35.0) H 08/18/24 05:20
Sodium 137 mmol/L (135-145) 08/18/24 05:20
Potassium 4.4 mmol/L (3.5-5.1) 08/18/24 05:20
BUN 10 mg/dl (9-20) 08/18/24 05:20
Creatinine 0.8 mg/dL (0.7-1.3) 08/18/24 05:20
Glucose 100 mg/dl (70-99) H 08/18/24 05:20
Troponins
08/15/24 08/15/24 08/15/24
16:48 18:33 22:04
Troponin I 0.725 H* Cancelled 1.010 H* D
08/15/24 08/16/24 08/16/24
22:33 01:42 05:18
Troponin I Cancelled 1.090 H* 0.909 H*
08/16/24 08/16/24
09:00 11:55
Troponin I Cancelled 0.713 H*
Vital Signs and I&O:
Vital Signs
Temp Pulse Resp BP Pulse Ox
98.4 F 94 18 133/80 98
08/18/24 05:21 08/18/24 05:20 08/18/24 05:21 08/18/24 05:20 08/18/24 05:21
Vital Signs
Temp Pulse Resp BP Pulse Ox
98.4 F 94 18 133/80 98
08/18/24 05:21 08/18/24 05:20 08/18/24 05:21 08/18/24 05:20 08/18/24 05:21
Intake & Output
08/16/24 08/17/24 08/18/24 08/19/24
06:59 06:59 06:59 06:59
Intake Total 715.0 / 715.0 782 / 782 240 / 240
Output Total 750 / 750 1440 / 1440
Balance -35.0 / -35.0 -658 / -658 240 / 240
Physical Exam
Physical Exam
GEN: No distress, awake, Ox3, sitting on edge of bed eating breakfast
HEENT: supple, anicteric, mmm
LUNGS: CTA, no wheezes/rales
CV: Reg, S1/S2, no murmur, rub or gallop
ABD: soft, BS+, NT/ND
EXT: No edema, clubbing or cyanosis
NEURO: Gross non-focal
SKIN: No rash, warm, dry, pink
[2024-08-18] MEDS: LOW STRENGTH ASPIRIN 81 MG PO (09:04)
[2024-08-18] MEDS: PROTONIX 40 MG PO (09:04)
[2024-08-18] MEDS: TOPROL XL 25 MG PO ×2 (09:04→20:14)
--- NOTE | 2024-08-18 09:05 | CM ---
plan is for CABG wed 08/20, cm following. 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
[2024-08-18] MEDS: HEPARIN 25000 UNITS/250 ML IV (09:12)
--- NOTE | 2024-08-18 09:42 | PTCARENOTE ---
Received patient this morning sitting oob in the chair. IV heparin infusing at 1700 units/hr, PTT at therapeutic level. NTG gtt infusing at 20mcg/min, denies any chest pain presently, has been having headaches from medication and medicated by prior
shift. BP elevated, patient states 'it's always high'. 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 Given AM meds, will recheck BP.
[2024-08-18] MEDS: FLUSH (NSS) 2 FLUSH IV (12:49)
--- NOTE | 2024-08-18 13:05 | PTCARENOTE ---
Patient returned from ultrasound complaining of a severe headache, rated 20/10. Medicated with morphine 2mg IV for pain. Spoke with cardiology and ok to taper nitro infusion as ordered on JAN. Patient informed that we would attempt to taper infusion
as this is likely the cause of his headache. Explained that he should notify us with any chest pain. Patient states that even the lights were bothering him in ultrasound, sitting at the side of the bed now, ordering lunch.
--- NOTE | 2024-08-18 14:08 | CM ---
Reviewed chart. Mr. Metz was transferred to IVU. Met with Mr. Metz to review discharge plans. He states prior to admission he resides with his spouse in a one story home with one step to enter. He would have to enter from the back of the
house for the one step. He states he prior to admission he was independent with ambulation and adls. He states he does not have any DME in the home. He currently does not have any health insurance. He states [facility] was in to see him today. He
states his sppouse will be home to assist in his care if needed. Medical work-up in progress. The discharge plan is to return home with his spouse and a home visit by the Cardiothoracic Transitional Care Nurse when medically stable.
We reviewed pre-op and post-op routines. We briefly reviewed the shower instructions. We also reviewed restrictions including sternal precautions and driving restrictions. We discussed a home visit by the Cardiothoracic Transitional Care Nurse.
He is agreeable to a home visit. The plan is to CABG on Sunday08/20/24.
--- NOTE | 2024-08-18 15:00 | PTCARENOTE ---
Nitro gtt tapered to off, no complaints of chest pain, headache resolved after IV morphine. Visiting with friends now.
[2024-08-18] MEDS: LIPITOR 80 MG PO (18:19)
[2024-08-18 19:20] LABS: Hepatitis C Antibody Reactive (Negative)
--- NOTE | 2024-08-18 19:32 | PTCARENOTE ---
Patient visiting with his and daughter, called nurse into the room complaining that his right arm went 'numb'. Able to move his arm, radial pulse present. Patient feels his arm is swollen. States it feels like 'an ant is crawling up my arm'.
Dressing from previous cath site removed, area soft with no signs of hematoma. BP 114/93- SR on the monitor. Notified CT surgery Liz Bernstein NP of the patient's complaints. EKG done and will send troponin to the lab. Medicated with tylenol PO.
[2024-08-18 20:22] LABS: Troponin I 0.259 ng/ml
[2024-08-19] VITALS (11 sets, daily range): BP systolic 102–146; BP diastolic 58–111; BMI 32.7
--- NOTE | 2024-08-19 02:09 | PTCARENOTE ---
Assumed care of patient at change of shift. Patient c/o right arm pain throughout and described as 'tender and swollen'. Patient states 'I can't explain it, it just hurts'. Rated pain 7 out of 10. Pt denies doing anything to aggravate arm. Upon
assessment no swelling noted at this time. Right radial site WHITNEY and positive radial pulse. Tele remains NSR. PRN Morphine administered--see MAR for details. Ed Génesis CV PA made aware. IV heparin gtt currently infusing at 17ml/hr. Call junior within
reach.
[2024-08-19] MEDS: HEPARIN 25000 UNITS/250 ML IV ×2 (02:43→18:57)
--- NOTE | 2024-08-19 07:38 | W.PN.CT ---
Today's Communication / Plan
-
-No issues overnight, denies CP/SOB
-Cont. NTG and Heparin gttt
-Left LUE limb alert for L RA conduit
-Will stop NTG and Heparin gtt international account representative to OR
-For CABG by Dr. Velasquez tomorrow
Assessment / Plan
-
Assessment:
-Multivessel CAD
-[place]
-HTN
-Hypercholesterolemia
-Hypertensive urgency
-NSTEMI with Abnormal troponin
-Multivessel coronary artery disease on cath 08/15/2024
-Hiatal hernia on CT chest/abd/pelvis
-Hyperlipidemia
-Hepatitis C
-Prior Opioid/substance abuse
-Kidney stone
-History of noncompliance
-Strong family history of premature CAD
Discussed patient care with: Cardiology, Nursing, Respiratory Therapy, Pharmacy and Care Team
Subjective
-
Date of Service: August 19, 2024
No major issues overnight. Denies CP/SOB
Objective Data
-
PT 13.6 Sec (11.4-14.6) 08/15/24 16:28
INR 1.06 08/15/24 16:28
APTT 98.7 Sec (23.4-35.0) H 08/18/24 05:20
Vital Signs
Vital Signs
Temp Pulse Resp BP Pulse Ox
97.5 F 81 18 146/94 99
08/19/24 05:10 08/19/24 06:00 08/19/24 05:10 08/19/24 05:09 08/19/24 05:10
CT Intake/Output/Weight
08/18/24 08/19/24 08/19/24
18:59 06:59 18:59
Intake Total 240 / 684 444 / 684
Balance 240 / 684 444 / 684
SaO2: 99 (RA)
Physical Exam
-
General: Awake, Oriented and AOx3
Cardiovascular: Regular rate & rhythm and No Murmurs
Respiratory: Decreased Breath Sounds
Extremities: No Edema
Data Reviewed
-
Lab Results: Results Reviewed
Medications: Active Meds Reviewed
Chest X-Ray: Report Reviewed and Image Reviewed
ECG: Report Reviewed and Image Reviewed
[2024-08-19] MEDS: LOW STRENGTH ASPIRIN 81 MG PO (07:50)
[2024-08-19] MEDS: TOPROL XL 25 MG PO ×2 (07:50→21:40)
[2024-08-19] MEDS: PROTONIX 40 MG PO (07:50)
[2024-08-19] MEDS: MORPHINE SULFATE 2 MG IV ×2 (08:02→16:31)
[2024-08-19 08:42] LABS: Hematocrit 44.9 % (39.0-52.0); Hemoglobin 15.6 g/dL (13.0-18.0); Mean Corp Hgb Conc. 34.7 g/dL (33.0-37.0); Mean Corpuscular Hgb 28.1 pg (27.0-31.0); Mean Corpuscular Volume 80.8 fL (80.0-94.0); Platelet Count 206 10^3/uL (130-400); Red Blood Cell Count 5.56 10^6/uL (4.70-6.10); Red Cell Dist. Width 12.8 % (11.5-14.5); White Blood Cell Count 5.4 10^3/uL (4.8-10.8)
[2024-08-19 08:47] LABS: APTT 68.8 Sec (23.4-35.0)
[2024-08-19 11:39] LABS: Blood Urea Nitrogen 12 mg/dl (9-20); Calcium 9.4 mg/dl (8.4-10.2); Carbon Dioxide 26 mmol/L (22-30); Chloride 103 mmol/L (98-107); Estimated Creatinine Clearance > 125 ml/min; Glucose 105 mg/dl (70-99); Potassium 4.5 mmol/L (3.5-5.1); Sodium 141 mmol/L (135-145); eGFR > 60.00
--- NOTE | 2024-08-19 12:42 | CM ---
Reviewed chart. Met with Mr. Metz to review discharge plans. He states he is feeling the same. Prior to admission he resides with his spouse in a one story home with one step to enter. Prior to admission he was independent with ambulation and
adls. He does not have any DME in the home. Currently he does not have any health insurance. His spouse will be home to assist in his care if needed. Medical work-up in progress. The discharge plan is to return home with his spouse and a home
visit by the Cardiothoracic Transitional Care Nurse when medically stable.
[2024-08-19 17:15] LABS: APTT 52.4 Sec (23.4-35.0)
[2024-08-19] MEDS: LIPITOR 80 MG PO (17:28)
--- NOTE | 2024-08-19 19:37 | PTCARENOTE ---
Pt denies any chest pain or sob. C/o of right arm pain and headache pain today, relieved with morphine as ordered. OOB ad tc in the room. Heparin infusing as ordered.
--- NOTE | 2024-08-19 22:00 | PTCARENOTE ---
Pt received at change of shift. VSS, NSR on tele with HR 70s-80s. Heparin gtt currently infusing per order, no complaints of CP at this time. Pt clipped and showered with with CHG as prep for CVOR in AM. Plan of care discussed and pt verbalizes
understanding to remain NPO after midnight. Can make need known. Call junior within reach.
[2024-08-19] MEDS: ATIVAN 0.5 MG PO (22:25)
[2024-08-19 23:12] LABS: APTT 47.8 Sec (23.4-35.0)
[2024-08-19] MEDS: NITROSTAT (SUBLINGUAL) 0.4 MG SL ×2 (23:26→23:32)
[2024-08-20] VITALS (13 sets, daily range): BP systolic 69–127; BP diastolic 35–95; BMI 32.1
[2024-08-20] MEDS: MORPHINE SULFATE 2 MG IV (00:34)
--- NOTE | 2024-08-20 01:57 | PTCARENOTE ---
Addendum entered by Sheila Mcfadden RN 08/20/24 02:34:
EKG obtained, no change noted from previous.
Original Note:
Pt with complaints of intense CP which he rates 08/21. States that he 'doesn't feel right at all' that chest muscles feel 'tight' and he is having trouble getting a full breath in. BP 139/101, HR 91, pulse ox 95% on RA, placed on 2L NC for
comfort. SL Nitro administered X2, see MAR. Pt reports CP resolved.
[2024-08-20] MEDS: LOPRESSOR 25 MG PO (06:10)
[2024-08-20] MEDS: MAGNESIUM OXIDE 500 MG PO (06:10)
[2024-08-20] MEDS: BACTROBAN 2% OINTMENT 1 APPLIC NASAL ×2 (06:10→20:46)
[2024-08-20] MEDS: PROTONIX 40 MG PO (06:10)
[2024-08-20 06:31] LABS: APTT 79.9 Sec (23.4-35.0)
--- NOTE | 2024-08-20 06:49 | W.CVOR.SURPR ---
CVOR Surgeon Immed Pre Op
-
I have examined this patient prior to performance of the scheduled procedure.
The patient's condition is unchanged from the time of the dictated/written History and
Physical and the patient is able to undergo the scheduled procedure.
[2024-08-20 08:12] LABS: ACT+ - POC 109 Seconds (82-134)
[2024-08-20 08:52] LABS: Urine Albumin Negative (Neg - Trace); Urine Bilirubin Negative (Negative); Urine Character Clear (Clear); Urine Color Yellow; Urine Glucose Negative (Negative); Urine Ketone Negative (Negative); Urine Leukocyte Negative (Negative); Urine Nitrite Negative (Negative); Urine Occult Blood Negative (Negative); Urine Urobilinogen Negative (Neg - 1+)
[2024-08-20 10:21] LABS: Blood Urea Nitrogen 18 mg/dl (9-20); Calcium 9.4 mg/dl (8.4-10.2); Carbon Dioxide 26 mmol/L (22-30); Chloride 103 mmol/L (98-107); Estimated Creatinine Clearance > 125 ml/min; Glucose 96 mg/dl (70-99); Potassium 4.3 mmol/L (3.5-5.1); Sodium 140 mmol/L (135-145); eGFR > 60.00
[2024-08-20 10:26] LABS: ACT+ - POC 555 Seconds (82-134)
--- NOTE | 2024-08-20 10:33 | CM ---
Patient in OR today for CABG.
Reviewed initial assessment. Pt. resides with spouse in a private, 1 story home. There are no steps to enter the home. Functionally, patient is indep. w/ ADLs, mobility without the use of any assisted device.
Anticipated DC plan is for home w/ CT Transitional Care RN.
CM to follow.
[2024-08-20 11:02] LABS: B.E. - POC -0.3 mmol/L; Glucose - POC 97 mg/dl (70-99); HCO3 - POC 24 mmol/L (21-29); Hematocrit - POC 42 % PCV (42-52); Hemodilution- POC No; Hemoglobin Calculated - POC 14.3; Ionized Calcium - POC 1.16 mmol/L (1.12-1.27); PCO2 - POC 36 mmHg (35-45); PO2 - POC 126 mmHg (80-100); POC Comment PRE; Potassium - POC 4.2 mmol/L (3.6-5.0); Sodium - POC 139 mmol/L (135-145); pH - POC 7.43 (7.35-7.45)
[2024-08-20 11:20] LABS: ACT+ - POC 482 Seconds (82-134)
[2024-08-20 11:35] LABS: Glucose - POC 131 mg/dl (70-99); HCO3 - POC 28 mmol/L (21-29); Hematocrit - POC 35 % PCV (42-52); Hemodilution- POC Yes; Hemoglobin Calculated - POC 11.8; Ionized Calcium - POC 1.06 mmol/L (1.12-1.27); O2 Saturation %Calculated-POC 99.9 % (92-96); PCO2 - POC 42 mmHg (35-45); PO2 - POC 346 mmHg (80-100); POC Comment CPB; Potassium - POC 6.6 mmol/L (3.6-5.0); Sodium - POC 135 mmol/L (135-145); pH - POC 7.43 (7.35-7.45)
[2024-08-20 11:50] LABS: ACT+ - POC 511 Seconds (82-134)
[2024-08-20 12:30] LABS: B.E. - POC 0.3 mmol/L; Glucose - POC 167 mg/dl (70-99); HCO3 - POC 25 mmol/L (21-29); Hematocrit - POC 32 % PCV (42-52); Hemodilution- POC Yes; Hemoglobin Calculated - POC 10.7; Ionized Calcium - POC 1.03 mmol/L (1.12-1.27); O2 Saturation %Calculated-POC 99.9 % (92-96); PCO2 - POC 41 mmHg (35-45); PO2 - POC 333 mmHg (80-100); POC Comment CPB; Sodium - POC 136 mmol/L (135-145)
[2024-08-20 12:36] LABS: ACT+ - POC 104 Seconds (82-134)
[2024-08-20 12:58] LABS: B.E. - POC -3.3 mmol/L; Glucose - POC 141 mg/dl (70-99); HCO3 - POC 23 mmol/L (21-29); Hematocrit - POC 32 % PCV (42-52); Hemodilution- POC Yes; Hemoglobin Calculated - POC 10.8; Ionized Calcium - POC 1.29 mmol/L (1.12-1.27); O2 Saturation %Calculated-POC 96.7 % (92-96); PCO2 - POC 48 mmHg (35-45); PO2 - POC 98 mmHg (80-100); POC Comment POST; Potassium - POC 4.6 mmol/L (3.6-5.0); Sodium - POC 140 mmol/L (135-145); pH - POC 7.29 (7.35-7.45)
--- NOTE | 2024-08-20 13:06 | W.PN.CT.SURG ---
CT Surgery Operative Note
-
Pre-op Diagnosis: NSTEMI
cad
Post-op Diagnosis: Same
Procedure: CAbg x 4, on pump
broussard- lad
milvia- ramus/om
ao- radial - rca
Left endo radial harvest
RSF
Primary Surgeon: Eva
Assisting Surgeons: MD Katharina- [facility] pgy2, chest assist
McSorley - endo radial, chest assist
Specimen: None
Cultures: None
Complications / Blood Loss: None
Findings: Azar with preserved EF pre and post revasc
Good conduits
Very poor diffusely diseased CAD, poor targerts
[2024-08-20 13:45] LABS: Glucose - Point of Care 65 mg/dl (70-99)
[2024-08-20 13:48] LABS: Mixed Venous O2 Saturation 77.3 %
[2024-08-20 13:50] LABS: Hematocrit 36.6 % (39.0-52.0); Platelet Count 171 10^3/uL (130-400)
[2024-08-20] MEDS: DEXTROSE 50% SYRINGE 12.5 GRAMS IV (13:51)
[2024-08-20 13:52] LABS: B.E. -1.7 mmol/L; HCO3 24.3 mmol/L (21-28); Ionized Calcium 1.16 mMOL/L (1.15-1.33); O2 Saturation % 98.6 % (94-98); PCO2 45 mmHg (35-48); PO2 73 mmHg (83-108); Potassium 4.5 mMOL/L (3.5-5.1); Sodium 134 mMOL/L (136-145); pH 7.34 (7.35-7.45)
[2024-08-20 13:57] LABS: PT 16.2 Sec (11.4-14.6)
--- NOTE | 2024-08-20 14:01 | CON.INTV ---
Consultation
Consultation Request
Date/Time Consultation Requested: 08/20/2024
Date/Time Consultation Performed: 08/20/2024
Requesting Provider:
Performing Provider: Dr. Peter Laura
Reason for Consultation: Status post coronary artery bypass
Medical History
-
History of Present Illness:
39-year-old man with past medical history significant for strong family history of coronary artery disease, hypertension, hyperlipidemia, smoker, history of IV drug abuse, opioid dependence, history of kidney stones, hepatitis C who presented to
[facility] on 08/14/2024 with complaints of severe chest pain for the last 2 days. Due to ruling in for non-ST elevation myocardial infarction, taken to the operating room for cardiac catheterization, found to have multivessel coronary
artery disease. Transferred to [facility] for coronary artery bypass evaluation.
He was deemed candidate for revascularization and underwent coronary artery bypass on 08/20/2024.
Currently in the critical care unit, intubated, on mechanical ventilation
Chest tube in place without significant air leak or excessive drainage.
Past Medical History
Past Medical History: Other (See assessment and plan)
Social History
Tobacco: Former Smoker (Quit 25 years ago)
Drug: Former User (Quit many years ago)
Personal:
Living: With Family
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
Family History
Family History: CAD (Father)
Allergies / Home Medications
Allergies
Allergy/AdvReac Type Severity Reaction Status Date / Time
No Known Allergies Allergy Verified 11/01/21 11:18
Home Medications
�Medication �Instructions �Recorded �Confirmed �Last Taken �Type
No Meds [No Current Medications] 08/15/24 08/15/24 Unknown History
Review of Systems
-
Unable to Obtain full review of systems at this time due to: Patient Intubation
Vitals / Labs / Diagnostic Testing
Vital Signs
Temp Pulse Resp BP Pulse Ox
97.5 F 97 0 69/43 92
08/20/24 13:49 08/20/24 13:55 08/20/24 13:55 08/20/24 13:38 08/20/24 13:55
Laboratory Results
08/19/24 08/19/24 08/20/24
16:49 22:53 06:08
APTT 52.4 H 47.8 H 79.9 H
pH
pCO2
pO2
HCO3
O2 Delivery Level
08/20/24
13:38
APTT
pH 7.34 L
pCO2 45
pO2 73 L
HCO3 24.3
O2 Delivery Level
Diagnostic Testing:
Physical Exam
-
HEENT: Normocephalic and Other (ET tube in place without secretions)
Cardiovascular: S1/S2
Respiratory: Non-Labored Respirations and Other (Chest tube in place without air leak or excessive drainage.)
GI: Soft and Non Distended
Neurology: Other (Intubated on mechanical ventilation)
Skin: Warm
General: Comfortable
Assessment
-
Status post coronary artery bypass 08/20/2024-Dr. Velasquez
Non-ST elevation myocardial infarction on Admission-multivessel coronary artery disease.
Preserved ejection fraction
Postoperative mechanical ventilation
Postoperative anemia
Conditions present prior admission:
Hyperlipidemia
History of hepatitis C
History of coronary artery disease
Former IVDA
Former smoker
Family history of early coronary artery disease
Plan recommendations:
His doing well postop-currently on mechanical ventilation and appears comfortable.
ABG reviewed: Adequate oxygenation and ventilation
Continue SIMV mode with no change
Spontaneous breathing trial per protocol once sedation wears off.
Anemia noted-no evidence of acute bleeding
Follow H&H serially
Hemodynamics -acceptable on low dose levophed
creatinine normal
follow urinary output.
Chest tube with no excessive drainage-no air leak.
Chest x-ray reviewed: With no pneumothorax or fluid collections.
Remain nothing by mouth
Head of the bed elevation
Glycemic control per protocol
DVT prophylaxis when safe from the surgical perspective.
Critical care statement: A total of 32 minutes of critical care time was provided for this patient today. This includes management of unstable vital signs, evaluation of the patient at bedside, reviewing the patient's pertinent medical records
including ventilator settings, arterial blood gases, radiographs, microbiology, laboratory evaluations and discussion with primary team, critical care nursing, and respiratory therapy.
[2024-08-20 14:07] LABS: APTT 26.1 Sec (23.4-35.0)
[2024-08-20 14:10] LABS: Blood Urea Nitrogen 17 mg/dl (9-20); Estimated Creatinine Clearance > 125 ml/min; Glucose 147 mg/dl (70-99); Magnesium 2.4 mg/dl (1.6-2.3)
[2024-08-20 14:12] LABS: Glucose - Point of Care 187 mg/dl (70-99)
[2024-08-20] MEDS: VERSED 0.5 MG IV ×2 (14:18→14:35)
[2024-08-20] MEDS: NSS 500 IV (14:19)
--- NOTE | 2024-08-20 14:28 | W.PN.CARDCBS ---
Addendum entered and electronically signed by Solis Vicente MD 08/20/24 16:48:
I saw and examined the patient.
The Flight Technician's note was reviewed and I agree with the note.
Comment:
GEN: No distress, intubated
HEENT: supple, anicteric, mmm
LUNGS: CTA, no wheezes/rales
CV: Reg, S1/S2, no murmur
ABD: soft, BS+, NT/ND
EXT: No edema
NEURO: Gross non-focal
SKIN: No rash
Plan:
Overall doing well. Wean to extubate.
Remains on low-dose Levophed/Insulin.
Continue aspirin and Plavix. Remains in sinus rhythm.
Original Note:
Today's Communication / Plan
-
Wean sedation with anticipation of extubation later this afternoon
Wean Levophed as tolerated
Continue to monitor on telemetry
Impression / Plan
-
PCP: Marya Dior
Commissioner Of Internal Revenue: Dr. Traylor
Impression:
Presented to [facility] 08/15/2024 with severe chest pain radiating into left arm and lightheadedness x 2 days
Hypertensive urgency
NSTEMI with Abnormal troponin, peak 1.090.
Multivessel coronary artery disease on cath 08/15/2024
s/p CABG x 4 (JOSUE to LAD, NAVARRO to ramus/OM, radial to RCA) with plated sternum 08/20/[address] chest/abd/pelvis
Hyperlipidemia
Hypertension
Hepatitis C
Prior Opioid/substance abuse
Kidney stone
History of noncompliance
Strong family history of premature CAD
Echo 08/15/2024 ([facility]): EF 48% with global hypokinesis more pronounced inferolaterally.� Concentric remodeling of LV.� Right ventricular cavity size at upper limits of normal with low normal systolic function.� Normal biatrial size.� No significant
valvular disease.
Cardiac catheterization 08/15/2024 ([facility]): LM: NL.� LAD proximal 30% followed by mid 90% stenosis.� Ramus: Proximal 95% stenosis with some ostial involvement.� Left circumflex mid 60 to 70% stenosis followed by ectatic dilation.� OM mid 70 to 80%
stenosis involving distal bifurcation.� RCA: Heavily calcified with severe disease proximal 60 to 70% and mid 80 to 90% at acute marginal
Plan:
-He has presented to [facility] 08/15/2024 with severe chest pain radiating into left arm and lightheadedness x 2 days. Abnormal troponin/NSTEMI, peak 1.090.
-Found to have multivessel coronary artery disease on cardiac catheterization.
-s/p CABG x 4 (JOSUE to LAD, NAVARRO to ramus/OM, radial to RCA) 08/20/2024
-Seen immediate postop remains intubated and sedated. Wean sedation with anticipation of extubation afternoon of 08/20/2024
-Currently on Levophed 4 mcg/kg/min; wean as tolerated
-Postop EKG reviewed sinus rhythm without ischemic changes
-Postop chest x-ray pending
-Postop hemoglobin stable 13.0
-Monitor on tele
-postop MIR EF 55 to 60% with normal regional wall motion and no significant valvular disease
-Eventually will need beta-lucas, LENNY/ARB when stable
-Pre-statin lipids 08/16/2024 TC 254, HDL 38, LDL 194, triglycerides 111. HgA1c 5.4%. Resume atorvastatin 80 mg when able to tolerate PO.
Discussed with nursing, pt
HPI: Patient is a 39-year-old male with past medical history significant for hypertension, hyperlipidemia, prior opioid/substance abuse, current vaping of nicotine, hepatitis C and family history of coronary artery disease with father dying of [place] in
his early 30s who presented to [facility] on 08/15/2024 with chest pain with radiation to left arm and lightheadedness x 2 days. Patient's blood pressure on arrival 225/145. Initial EKG showed sinus rhythm with no significant changes.
Patient was found to have abnormal troponin and was placed on nitro drip, heparin drip and loaded with Plavix 600 mg and aspirin 325 mg and ED. Patient underwent urgent [facility] cardiac catheterization and was found to have multivessel
coronary artery disease. Patient then transferred to [facility] for CT surgery evaluation.
At time of this evaluation patient is on IV heparin and nitroglycerin. He is chest pain-free.
Progress Note - Commissioner Of Internal Revenue
Subjective
Date of Service: August 20, 2024
Patient seen and examined immediately postoperative. Patient remains intubated and sedated but waking up and moving arms
Objective
Labs:
08/20/24 13:38
Labs
Hgb 13.0 g/dL (13.0-18.0) 08/20/24 13:38
Hct 36.6 % (39.0-52.0) L 08/20/24 13:38
Plt Count 171 10^3/uL (130-400) 08/20/24 13:38
PT 16.2 Sec (11.4-14.6) H 08/20/24 13:38
INR 1.30 08/20/24 13:38
APTT 26.1 Sec (23.4-35.0) 08/20/24 13:38
Sodium 140 mmol/L (135-145) 08/20/24 06:08
Potassium 4.3 mmol/L (3.5-5.1) 08/20/24 06:08
BUN 17 mg/dl (9-20) 08/20/24 13:38
Creatinine 0.9 mg/dL (0.7-1.3) 08/20/24 13:38
Glucose 147 mg/dl (70-99) H 08/20/24 13:38
Troponins
08/18/24 08/18/24
18:40 19:46
Troponin I Cancelled 0.259 H*
Vital Signs and I&O:
Vital Signs
Temp Pulse Resp BP Pulse Ox
97.6 F 100 20 95/47 95
08/20/24 14:00 08/20/24 14:20 08/20/24 14:15 08/20/24 14:04 08/20/24 14:20
Vital Signs
Temp Pulse Resp BP Pulse Ox
97.6 F 100 20 95/47 95
08/20/24 14:00 08/20/24 14:20 08/20/24 14:15 08/20/24 14:04 08/20/24 14:20
Intake & Output
08/18/24 08/19/24 08/20/24 08/21/24
06:59 06:59 06:59 06:59
Intake Total 240 / 240 684 / 684 104.2 / 104.2
Output Total 330 / 330
Balance 240 / 240 684 / 684 -225.8 / -225.8
Physical Exam
Physical Exam
GEN: Intubated and sedated
HEENT: supple, anicteric, mmm
LUNGS: CTA, no wheezes/rales
CV: Reg, S1/S2, no murmur, rub or gallop
CHEST: Sternotomy incision well-approximated; chest tubes indwelling
ABD: soft, BS+, NT/ND
EXT: No edema, clubbing or cyanosis
NEURO: Unable to assess as patient currently sedated and intubated
SKIN: No rash, warm, dry, pink
[2024-08-20 14:53] LABS: Glucose - Point of Care 198 mg/dl (70-99)
--- NOTE | 2024-08-20 14:54 | PTCARENOTE ---
Pt received from [facility] at 1330; Sedated and intubated; SR w/ PVC's on monitor; VSS; Epicardial V-wire present with temporary pacemaker settings VVI 50/10/2.0 - adjusted to 50/12.0/0.8 due to innappropriate sensing after finding thresholds; DP, left
ulnar, and right radial pulses present; Lungs diminished at bases; ETT size 8 positioned and secured at 24 cm right lip; Ventilator settings SIMV 16/600/5/8 FiO2 60%; CTx3 to -20 cm wall suction draining bloody drainage - no air leak, tidaling, or
crepitus noted; Hypoactive BS; Strickland catheter in place draining clear, yellow urine; Sternal incision glued and approximated, left radial graft site wrapped with LENNY wrap - CDI; Right radial A-line in place, SLIC present in right Cordis - all lines
zeroed and leveled; #20 PIVx1 present in right forearm; Levo/insulin/precedex/cardene infusing - see nursing flowsheets for further details; iCal repleted x1; Versed given x2 for attempts to extubated himself during CXR; see nursing documentation
for further details.
[2024-08-20] MEDS: ANCEF 15 MG IV (15:01)
[2024-08-20] MEDS: ANCEF 10 IV (15:01)
[2024-08-20] MEDS: NEURONTIN PO ×2 (15:01→15:02)
[2024-08-20 15:02] LABS: B.E. -2.7 mmol/L; HCO3 22.6 mmol/L (21-28); Ionized Calcium 1.23 mMOL/L (1.15-1.33); O2 Saturation % 97.6 % (94-98); PCO2 40 mmHg (35-48); PO2 72 mmHg (83-108); Potassium 4.9 mMOL/L (3.5-5.1); Sodium 133 mMOL/L (136-145)
[2024-08-20] MEDS: TOPROL XL PO (15:02)
[2024-08-20] MEDS: TYLENOL PO (15:02)
[2024-08-20] MEDS: LOW STRENGTH ASPIRIN PO (15:02)
[2024-08-20] MEDS: PACERONE PO (15:02)
[2024-08-20] MEDS: PROTONIX PO (15:02)
[2024-08-20 15:03] LABS: pH 7.36 (7.35-7.45)
--- NOTE | 2024-08-20 16:05 | PTCARENOTE ---
RT in room and pt placed on CPAP trial. ABG's due at 3608
[2024-08-20 16:13] LABS: Glucose - Point of Care 142 mg/dl (70-99)
[2024-08-20 16:35] LABS: B.E. -3.3 mmol/L; HCO3 22.1 mmol/L (21-28); Ionized Calcium 1.29 mMOL/L (1.15-1.33); O2 Saturation % 99.6 % (94-98); PCO2 40 mmHg (35-48); PO2 108 mmHg (83-108); Potassium 5.3 mMOL/L (3.5-5.1); Sodium 134 mMOL/L (136-145); pH 7.35 (7.35-7.45)
[2024-08-20] MEDS: LR 250 ML IV ×2 (16:44→17:49)
--- NOTE | 2024-08-20 16:50 | PTCARENOTE ---
ABG's reviewed; RT at bedside; Pt extubated at 1650; Pt placed on 6L NC.
--- NOTE | 2024-08-20 16:57 | RESPNOTE ---
pt extuibated at 1650 to nasal cannula 6 lpm. 02 sats of 98% noted
[2024-08-20 17:14] LABS: Glucose - Point of Care 146 mg/dl (70-99)
[2024-08-20] MEDS: OFIRMEV 100 IV (17:21)
[2024-08-20 17:26] LABS: Hematocrit 37.4 % (39.0-52.0); Hemoglobin 13.2 g/dL (13.0-18.0); Platelet Count 198 10^3/uL (130-400)
[2024-08-20 18:13] LABS: Glucose - Point of Care 130 mg/dl (70-99)
[2024-08-20] MEDS: LOW STRENGTH ASPIRIN 81 MG PO (18:24)
[2024-08-20] MEDS: ANCEF 5 IV (18:24)
[2024-08-20] MEDS: LIPITOR PO (18:24)
--- NOTE | 2024-08-20 19:00 | PTCARENOTE ---
report received from previous RN, walking rounds done, assumed care of pt. pt in bed, anxious and agitated, c/o 10/10 sternal incision pain. at bedside. 0.5mg dilaudid given as ordered PRN. SR/ST 90s-100s on monitor. heart tones clear. B/L DP
pulses palpable. R radial artery pulse palpable. epicardial wires intact to back up VVI, no pacing spikes noted. RIJ cordis + slic catheter intact w KVOs infusing. Levo gtt infusing @ 4mcg. B/L breath sounds present. POX 99% on 6LNC. CT x3 intact to
-20cm wall suction, drainage WNL, no air leak present. IS encouraged. morocho catheter intact, draining CYU, UO adequate. hypoactive bowel sounds present. Insulin gtt infusing per glycemic protocol. all surgical sites stable. turning pt Q2H and as
needed. see worklist for full assessment, VS, and interventions. pt resting between care.
[2024-08-20] MEDS: DILAUDID 0.5 MG IV (19:03)
[2024-08-20 20:05] LABS: Glucose - Point of Care 140 mg/dl (70-99)
[2024-08-20] MEDS: TORADOL 15 MG IV (20:46)
[2024-08-20] MEDS: ZOFRAN 4 MG IV (20:47)
[2024-08-20] MEDS: SENOKOT-S 1 TABLET PO (20:47)
[2024-08-20] MEDS: FLEXERIL 5 MG PO (20:47)
[2024-08-20] MEDS: PACERONE 200 MG PO (21:20)
[2024-08-20] MEDS: NEURONTIN 100 MG PO (21:20)
[2024-08-20] MEDS: TYLENOL 1000 MG PO (21:20)
[2024-08-20 22:11] LABS: Glucose - Point of Care 144 mg/dl (70-99)
[2024-08-20 22:54] LABS: Glucose - Point of Care 136 mg/dl (70-99)
--- NOTE | 2024-08-20 23:00 | PTCARENOTE ---
no acute changes. pt oriented x4. SR 90s. Levo gtt infusing @ 4mcg. POX 97% on room air. CT output and UO WNL. all surgical sites stable. insulin gtt maintained per protocol. pt sleeping between care.
[2024-08-21] VITALS (36 sets, daily range): BP systolic 82–144; BP diastolic 52–92; BMI 33.0
[2024-08-21 00:12] LABS: Glucose - Point of Care 131 mg/dl (70-99)
[2024-08-21 01:12] LABS: Glucose - Point of Care 134 mg/dl (70-99)
[2024-08-21] MEDS: LEVOPHED 250 IV (02:04)
[2024-08-21 02:16] LABS: Glucose - Point of Care 138 mg/dl (70-99)
[2024-08-21 02:21] LABS: Hematocrit 32.6 % (39.0-52.0); Hemoglobin 11.6 g/dL (13.0-18.0); Mean Corp Hgb Conc. 35.6 g/dL (33.0-37.0); Mean Corpuscular Volume 78.7 fL (80.0-94.0); Platelet Count 183 10^3/uL (130-400); Red Blood Cell Count 4.14 10^6/uL (4.70-6.10); Red Cell Dist. Width 12.7 % (11.5-14.5); White Blood Cell Count 12.3 10^3/uL (4.8-10.8)
--- NOTE | 2024-08-21 02:38 | W.PN.CT ---
Today's Communication / Plan
-
Current Drips: ( levo and Insulin)�
Consider ALVAREZ maya and bailee when hemodynamically stable�
Monitor chest tube drainage: med =15/5 =20 R/L pleural�=�265/244=423
UO = �1035
Cont. current meds (ASA, Amiodarone, metoprolol, Plavix, gabapentin)�
Limit narcotics (Tylenol and Toradol for pain control)�
Start Norvasc for radial harvest today�
Wean off of O2 as tolerated�
Encourage use of IS�
OOB into chair/Ambulate�
Assessment / Plan
-
CABG x 4, on pump (josue- lad, milvia- ramus/om ao- radial � rca) by Dr. Velasquez on 08/20/24 POD1�
Assessment:
-Multivessel CAD
-[place]
-HTN
-Hypercholesterolemia
-Hypertensive urgency
-NSTEMI with Abnormal troponin
-Multivessel coronary artery disease on cath 08/15/2024
-Hiatal hernia on CT chest/abd/pelvis
-Hyperlipidemia
-Hepatitis C
-Prior Opioid/substance abuse
-Kidney stone
-History of noncompliance
-Strong family history of premature CAD
Subjective
Procedure
CABG x 4, on pump (josue- lad, mivlia- ramus/om ao- radial � rca) POD1�
Presented to [facility] 08/15/2024 with severe chest pain radiating into left arm and lightheadedness x 2 days
Hypertensive urgency
NSTEMI with Abnormal troponin, peak 1.090.
Multivessel coronary artery disease on cath 08/15/2024
s/p CABG x 4 (JOSUE to LAD, MILVIA to ramus/OM, radial to RCA) with plated sternum 08/20/2024Hiatal hernia on CT chest/abd/pelvis
Hyperlipidemia
Hypertension
Hepatitis C
Prior Opioid/substance abuse
Kidney stone
History of noncompliance
Strong family history of premature CAD
-
Date of Service: August 21, 2024
Objective Data
-
Lab Results
08/21/24 02:14
PT 16.2 Sec (11.4-14.6) H 08/20/24 13:38
INR 1.30 08/20/24 13:38
APTT 26.1 Sec (23.4-35.0) 08/20/24 13:38
Vital Signs
Vital Signs
Temp Pulse Resp BP Pulse Ox
99.8 F 95 17 88/62 98
08/21/24 02:00 08/21/24 02:00 08/21/24 02:00 08/20/24 19:00 08/21/24 02:00
CT Intake/Output/Weight
08/20/24 08/20/24 08/21/24
06:59 18:59 06:59
Intake Total 914.4 / 1242.1 327.7 / 1242.1
Output Total 890 / 1380 490 / 1380
Balance 24.4 / -137.9 -162.3 / -137.9
SaO2: 98
Physical Exam
-
General: Awake
Cardiovascular: Regular rate & rhythm
Respiratory: Clear
Sternum: Stable
Incision: Clean, Dry and Intact
Extremities: Edema +1
[2024-08-21 02:50] LABS: Blood Urea Nitrogen 22 mg/dl (9-20); Calcium 8.5 mg/dl (8.4-10.2); Carbon Dioxide 24 mmol/L (22-30); Chloride 104 mmol/L (98-107); Estimated Creatinine Clearance > 125 ml/min; Glucose 140 mg/dl (70-99); Magnesium 1.9 mg/dl (1.6-2.3); Potassium 4.9 mmol/L (3.5-5.1); Sodium 137 mmol/L (135-145); eGFR > 60.00
[2024-08-21] MEDS: ANCEF 5 IV ×2 (02:59→11:00)
[2024-08-21] MEDS: MAGNESIUM SULFATE 50 IV (02:59)
--- NOTE | 2024-08-21 03:00 | PTCARENOTE ---
no acute changess. SR 90s. QIY98-04% on room air. Levo gtt infusing @ 6mcg. Insulin gtt maintained. CT output and UO WNL. all surgical sites stable. AM labs drawn and sent. pt sleeping between care.
[2024-08-21 04:13] LABS: Glucose - Point of Care 117 mg/dl (70-99)
[2024-08-21] MEDS: DILAUDID 0.25 MG IV (04:53)
[2024-08-21] MEDS: FLEXERIL 5 MG PO ×2 (04:54→15:35)
[2024-08-21 05:52] LABS: Glucose - Point of Care 119 mg/dl (70-99)
[2024-08-21] MEDS: TYLENOL 1000 MG PO ×2 (05:56→19:32)
[2024-08-21] MEDS: TORADOL 15 MG IV ×3 (07:20→18:45)
[2024-08-21] MEDS: DILAUDID 0.5 MG IV (07:21)
[2024-08-21 08:02] LABS: Glucose - Point of Care 94 mg/dl (70-99)
[2024-08-21] MEDS: NEURONTIN 100 MG PO (09:52)
[2024-08-21] MEDS: PROTONIX 40 MG PO (09:52)
[2024-08-21] MEDS: PLAVIX 75 MG PO (09:52)
[2024-08-21] MEDS: LOW STRENGTH ASPIRIN 81 MG PO (09:53)
[2024-08-21] MEDS: MAGNESIUM OXIDE 500 MG PO ×2 (09:53→19:35)
[2024-08-21] MEDS: SENOKOT-S 1 TABLET PO ×2 (09:53→19:35)
[2024-08-21] MEDS: PACERONE 200 MG PO ×3 (09:53→19:31)
[2024-08-21] MEDS: BACTROBAN 2% OINTMENT 1 APPLIC NASAL ×2 (09:54→19:35)
[2024-08-21 09:58] LABS: Glucose - Point of Care 73 mg/dl (70-99)
[2024-08-21] MEDS: ROXICODONE 5 MG PO ×4 (10:34→23:38)
[2024-08-21] MEDS: TYLENOL 650 MG PO (10:34)
--- NOTE | 2024-08-21 10:49 | PTCARENOTE ---
Rec'd pt this shift awake and alert in bed, moaning. Pt c/o 08/21 pain. pain medication given. Pt NSR on monitor, 2l n/c oxygen. Pulse ox 100%. Rec'd pt on 2mcg/min of Levophed. Levo weaned to off. Insulin drip continues as per glycemic protocol.
Mediastinal CT d/c'd. Rt and Left pleural CT to bulb. V-wire insulated. Pt assisted OOB up in chair. Pt encouraged to cough and deep breathe and to use IS. Pt needs a lot of encouragement to do anything, moaning and crying out at times. Emotional
support given. See worklist for VS/I and O and assessments.
[2024-08-21] MEDS: LIDOCAINE 4% PATCH 1 PATCH TOPICAL (11:00)
[2024-08-21] MEDS: NOVOLIN R INSULIN INFUSION 100 IV (11:01)
--- NOTE | 2024-08-21 11:31 | W.PN.CARDCBS ---
Today's Communication / Plan
-
Supportive postop care
Impression / Plan
-
PCP: Marya Dior
Student Financial Aid Manager: Dr. Traylor
Impression:
Presented to [facility] 08/15/2024 with severe chest pain radiating into left arm and lightheadedness x 2 days
Hypertensive urgency
NSTEMI with Abnormal troponin, peak 1.090.
Multivessel coronary artery disease on cath 08/15/2024
s/p CABG x 4 (JOSUE to LAD, NAVARRO to ramus/OM, radial to RCA) with plated sternum 08/20/[address] chest/abd/pelvis
Hyperlipidemia
Hypertension
Hepatitis C
Prior Opioid/substance abuse
Kidney stone
History of noncompliance
Strong family history of premature CAD
Echo 08/15/2024 ([facility]): EF 48% with global hypokinesis more pronounced inferolaterally.� Concentric remodeling of LV.� Right ventricular cavity size at upper limits of normal with low normal systolic function.� Normal biatrial size.� No significant
valvular disease.
Cardiac catheterization 08/15/2024 ([facility]): LM: NL.� LAD proximal 30% followed by mid 90% stenosis.� Ramus: Proximal 95% stenosis with some ostial involvement.� Left circumflex mid 60 to 70% stenosis followed by ectatic dilation.� OM mid 70 to 80%
stenosis involving distal bifurcation.� RCA: Heavily calcified with severe disease proximal 60 to 70% and mid 80 to 90% at acute marginal
Plan:
-He has presented to [facility] 08/15/2024 with severe chest pain radiating into left arm and lightheadedness x 2 days. Abnormal troponin/NSTEMI, peak 1.090.
-Found to have multivessel coronary artery disease on cardiac catheterization.
-s/p CABG x 4 (JOSUE to LAD, NAVARRO to ramus/OM, radial to RCA) 08/20/2024
-Extubated on nasal cannula O2
-Hemodynamically stable in sinus rhythm
-Postop hemoglobin stable 13.0
-Monitor on tele
-postop MIR EF 55 to 60% with normal regional wall motion and no significant valvular disease
-Eventually will need beta-lucas, LENNY/ARB when stable
-Pre-statin lipids 08/16/2024 TC 254, HDL 38, LDL 194, triglycerides 111. HgA1c 5.4%. Resume atorvastatin 80 mg when able to tolerate PO.
-Pain management
-Chest tube management per CT surgery
-Encouraged use of incentive spirometer
-Supportive postop care
Discussed with CT surgery and patient's at bedside
HPI: Patient is a 39-year-old male with past medical history significant for hypertension, hyperlipidemia, prior opioid/substance abuse, current vaping of nicotine, hepatitis C and family history of coronary artery disease with father dying of [place] in
his early 30s who presented to [facility] on 08/15/2024 with chest pain with radiation to left arm and lightheadedness x 2 days. Patient's blood pressure on arrival 225/145. Initial EKG showed sinus rhythm with no significant changes.
Patient was found to have abnormal troponin and was placed on nitro drip, heparin drip and loaded with Plavix 600 mg and aspirin 325 mg and ED. Patient underwent urgent [facility] cardiac catheterization and was found to have multivessel
coronary artery disease. Patient then transferred to [facility] for CT surgery evaluation.
At time of this evaluation patient is on IV heparin and nitroglycerin. He is chest pain-free.
Progress Note - Student Financial Aid Manager
Subjective
Date of Service: August 21, 2024
Seen and examined. Sitting out of bed to chair. Complaining of generalized pain but denies angina.
Objective
Labs:
08/21/24 02:14
08/21/24 02:14
Labs
Hgb 11.6 g/dL (13.0-18.0) L 08/21/24 02:14
Hct 32.6 % (39.0-52.0) L 08/21/24 02:14
Plt Count 183 10^3/uL (130-400) 08/21/24 02:14
PT 16.2 Sec (11.4-14.6) H 08/20/24 13:38
INR 1.30 08/20/24 13:38
APTT 26.1 Sec (23.4-35.0) 08/20/24 13:38
Sodium 137 mmol/L (135-145) 08/21/24 02:14
Potassium 4.9 mmol/L (3.5-5.1) 08/21/24 02:14
BUN 22 mg/dl (9-20) H 08/21/24 02:14
Creatinine 0.9 mg/dL (0.7-1.3) 08/21/24 02:14
Glucose 140 mg/dl (70-99) H 08/21/24 02:14
Troponins
08/18/24 08/18/24
18:40 19:46
Troponin I Cancelled 0.259 H*
Vital Signs and I&O:
Vital Signs
Temp Pulse Resp BP Pulse Ox
99.6 F 91 18 99/76 96
08/21/24 07:27 08/21/24 10:01 08/21/24 09:30 08/21/24 10:01 08/21/24 09:30
Vital Signs
Temp Pulse Resp BP Pulse Ox
99.6 F 91 18 99/76 96
08/21/24 07:27 08/21/24 10:01 08/21/24 09:30 08/21/24 10:01 08/21/24 09:30
Intake & Output
08/19/24 08/20/24 08/21/24 08/22/24
06:59 06:59 06:59 06:59
Intake Total 684 / 684 1458.4 / 1458.4 1279.8 / 1279.8
Output Total 1585 / 1585 50 / 50
Balance 684 / 684 -126.6 / -126.6 1229.8 / 1229.8
Physical Exam
Physical Exam
GEN: Awake alert and oriented although sleepy after pain meds. Out of bed to chair.
HEENT: supple, anicteric, mmm
LUNGS: Poor effort with decreased breath sounds at the bases. No wheezes or rales.
CV: Reg, S1/S2, no murmur, rub or gallop
CHEST: Sternotomy incision well-approximated; chest tubes indwelling
ABD: soft, BS+, NT/ND
--- NOTE | 2024-08-21 11:56 | CM ---
CM following for DC planning needs.
Pt. is POD#1 from CABG.
Attempted to meet w/ patient at bedside but patient was sleeping soundly.
Reviewed DC plan for home w/ CT Transitional Care RN.
CM to follow.
[2024-08-21 12:07] LABS: Glucose - Point of Care 110 mg/dl (70-99)
[2024-08-21] MEDS: NSS IV (13:15)
[2024-08-21 14:25] LABS: Glucose - Point of Care 75 mg/dl (70-99)
--- NOTE | 2024-08-21 15:07 | W.PN.INTV ---
Today's Communication / Plan
Recommendations
Continue postoperative care
Sign off
Assessment
-
Status post coronary artery bypass 08/20/2024-Dr. Velasquez
Non-ST elevation myocardial infarction on Admission-multivessel coronary artery disease.
Preserved ejection fraction
Postoperative mechanical ventilation
Postoperative anemia
Conditions present prior admission:
Hyperlipidemia
History of hepatitis C
History of coronary artery disease
Former IVDA
Former smoker
Family history of early coronary artery disease
Plan recommendations:
Postoperative day 1
Extubated
Off oxygen
Clear lung exam
Continue with analgesia
Incentive spirometry encouraged
Increase activity per protocol
Anemia noted-no evidence of acute bleeding
Follow H&H serially
Hemodynamics -acceptable on l off vasopressors.
creatinine normal
Chest tube with no excessive drainage-no air leak.
Chest x-ray reviewed: With no pneumothorax or fluid collections.
Advance diet as able
Head of the bed elevation
Glycemic control per protocol
DVT prophylaxis when safe from the surgical perspective.
Patient has been transferred to telemetry phase
No additional critical care recommendations.
Sign off
Subjective Dataa
Subjective Data
Date of Service:
Date of Service: August 21, 2024
Chief Complaint: Ms Access Database Developer Follow Up (Status post coronary artery bypass)
Subjective:
Complaining of chest pain-incisional
Denies shortness of breath at rest
Denies any cough or phlegm production
Denies nausea vomiting
Objective Data
Data Reviewed
Vital Signs / I&O / Oxygen:
Vital Signs
Temp Pulse Resp BP Pulse Ox
98.3 F 99 18 118/87 98
08/21/24 12:08 08/21/24 14:30 08/21/24 14:34 08/21/24 12:00 08/21/24 14:34
Intake and Output
08/20/24 08/21/24 08/22/24
06:59 06:59 06:59
Intake Total 1458.4 / 1458.4 1319.8 / 1319.8
Output Total 1585 / 1585 175 / 175
Balance -126.6 / -126.6 1144.8 / 1144.8
SaO2 [CPAP/PSV] 99
SaO2 [SIMV] 99
SaO2 98
Nasal Cannula flow liters per 1
minute
Physical Exam
General: Pain (Incision)
HEENT: Normocephalic
Cardiovascular: S1-S2
Respiratory: Non-Labored Respirations and Chest Tube (No excessive drainage or air leak)
GI: Soft and Non Distended
Neurology: Awake, Alert, Oriented and No Motor Deficits
Labs/Micro/Reports
Lab Data
08/21/24 02:14
08/21/24 02:14
Laboratory Results
08/20/24
16:23
pH 7.35
pCO2 40
pO2 108
HCO3 22.1
O2 Delivery Level Not Reportable
[2024-08-21] MEDS: NEURONTIN 300 MG PO ×2 (15:35→19:35)
--- NOTE | 2024-08-21 16:42 | PTCARENOTE ---
Pt OOB up in chair for meals, Pt ambulated to bathroom to void. Pt continues to complain of left arm numbness and pain.
[2024-08-21 17:06] LABS: Prealbumin (Transthyretin) 14.4 mg/dl (17.6-36.0)
[2024-08-21] MEDS: LIPITOR 80 MG PO (17:26)
[2024-08-21] MEDS: TYLENOL PO (17:27)
[2024-08-21] MEDS: LOPRESSOR 12.5 MG PO (19:32)
--- NOTE | 2024-08-21 20:37 | W.PN.ANS.POP ---
Anesthesia Post Operative
- Anesthesia Post Op Note
Vital Signs Stable-See Nursing Note: Yes
Airway Patent: Yes
Adequate Pain Control: Yes
Change in Mental Status: No
Current Postoperative Nausea & Vomiting: No
Anesthesia Complications: No
General Anesthetic Recall: No
Unplanned Admission: No
Post Op Hydration Adequate: Yes
--- NOTE | 2024-08-21 21:36 | PTCARENOTE ---
assumed care of patient @ 1900. received pt sitting in fili, AOx3. Pt very anxious, in pain, demanding to go back to bed. assisted pt back to bed. education provided on need to be in chair and movement to facilitate healing. NSR on tele monitor. V
wire insulated. + L ulnar pulse. B/L hands cool and cap refill > 2 seconds. pt complaining of having no feeling in hands. Lungs clear, diminished on 2L satting mid 90s. R and L pleural bulb with serosang drainage. Poor appetite reportedly. belly
soft, hypoactive. Voiding in bathroom. L arm radial incisions CDI., CT and sternum CDI. R IJ cordis with RAC PIV patent. rishabh given for pain. call junior within reach .
[2024-08-22] VITALS (14 sets, daily range): BP systolic 92–148; BP diastolic 55–97; PULSE 96; O2SAT 91–93; BMI 33.4
--- NOTE | 2024-08-22 | PTCARENOTE ---
rishabh given for hand pain/ numbness. no change in assessment
--- NOTE | 2024-08-22 01:24 | W.PN.CT ---
Addendum entered and electronically signed by KIAN Toledo 08/28/24 23:24:
Drop in HGb post cardiac surgery. Vitals stable. Not a significant drop to required transfusion. Continue to trend HGB.
Original Note:
Today's Communication / Plan
-
No events overnight
Monitor chest tube drainage: R/L pleural (bulb) =�60/25 = 85
UOP =��voiding
Cont. current meds (ASA, Amiodarone, metoprolol, Plavix, gabapentin)�
Limit narcotics (Tylenol and Toradol for pain control); oxycodone for severe pain�
Continue Norvasc for radial harvest today�
Wean off of O2 as tolerated�
Encourage use of IS�
OOB into chair/Ambulate�
Assessment / Plan
-
CABG x 4, on pump (josue- lad, navarro- ramus/om ao- radial � rca) by Dr. Velasquez on 08/20/24 POD2�
Assessment:
-Multivessel CAD
-USA
-HTN
-Hypercholesterolemia
-Hypertensive urgency
-NSTEMI with Abnormal troponin
-Multivessel coronary artery disease on cath 08/15/2024
-Hiatal hernia on CT chest/abd/pelvis
-Hyperlipidemia
-Hepatitis C
-Prior Opioid/substance abuse
-Kidney stone
-History of noncompliance
-Strong family history of premature CAD
Subjective
Procedure
CABG x 4, on pump (josue- lad, navarro- ramus/om ao- radial � rca) POD2�
Presented to [facility] 08/15/2024 with severe chest pain radiating into left arm and lightheadedness x 2 days
Hypertensive urgency
NSTEMI with Abnormal troponin, peak 1.090.
Multivessel coronary artery disease on cath 08/15/2024
s/p CABG x 4 (JOSUE to LAD, NAVARRO to ramus/OM, radial to RCA) with plated sternum 08/20/2024Hiatal hernia on CT chest/abd/pelvis
Hyperlipidemia
Hypertension
Hepatitis C
Prior Opioid/substance abuse
Kidney stone
History of noncompliance
Strong family history of premature CAD
-
Date of Service: August 22, 2024
Objective Data
-
PT 16.2 Sec (11.4-14.6) H 08/20/24 13:38
INR 1.30 08/20/24 13:38
APTT 26.1 Sec (23.4-35.0) 08/20/24 13:38
Vital Signs
Vital Signs
Temp Pulse Resp BP Pulse Ox
98.8 F 95 18 129/72 96
08/22/24 00:30 08/22/24 00:30 08/22/24 00:30 08/21/24 23:40 08/22/24 00:30
CT Intake/Output/Weight
08/21/24 08/21/24 08/22/24
06:59 18:59 06:59
Intake Total 544.0 / 1458.4 1319.8 / 1799.8 480 / 1799.8
Output Total 695 / 1585 260 / 300 40 / 300
Balance -151.0 / -126.6 1059.8 / 1499.8 440 / 1499.8
SaO2: 96
Physical Exam
-
General: Awake
Cardiovascular: Regular rate & rhythm
Respiratory: Clear
Sternum: Stable
Incision: Clean, Dry and Intact
Extremities: Edema +1
[2024-08-22] MEDS: ROXICODONE 5 MG PO ×4 (03:40→19:41)
--- NOTE | 2024-08-22 03:52 | PTCARENOTE ---
pt stood to scale, voided 350 in urinal. rishabh 5 given for pain. back in bed, call junior within reach
[2024-08-22 04:00] LABS: Hematocrit 30.1 % (39.0-52.0); Hemoglobin 10.7 g/dL (13.0-18.0); Mean Corp Hgb Conc. 35.5 g/dL (33.0-37.0); Mean Corpuscular Hgb 29.6 pg (27.0-31.0); Mean Corpuscular Volume 83.1 fL (80.0-94.0); Mean Platelet Volume 11.3 fL (7.4-10.4); Platelet Count 155 10^3/uL (130-400); Red Blood Cell Count 3.62 10^6/uL (4.70-6.10); Red Cell Dist. Width 12.8 % (11.5-14.5); White Blood Cell Count 12.1 10^3/uL (4.8-10.8)
[2024-08-22 04:33] LABS: Blood Urea Nitrogen 27 mg/dl (9-20); Calcium 8.1 mg/dl (8.4-10.2); Carbon Dioxide 26 mmol/L (22-30); Chloride 100 mmol/L (98-107); Estimated Creatinine Clearance > 125 ml/min; Glucose 126 mg/dl (70-99); Magnesium 1.9 mg/dl (1.6-2.3); Potassium 4.7 mmol/L (3.5-5.1); Sodium 134 mmol/L (135-145); eGFR > 60.00
[2024-08-22] MEDS: TORADOL 15 MG IV ×2 (06:09→12:14)
[2024-08-22] MEDS: FLEXERIL 5 MG PO ×2 (06:09→14:16)
[2024-08-22] MEDS: TYLENOL 1000 MG PO ×3 (06:09→19:41)
[2024-08-22] MEDS: NEURONTIN 300 MG PO ×3 (08:02→19:40)
[2024-08-22] MEDS: PLAVIX 75 MG PO (08:02)
[2024-08-22] MEDS: MAGNESIUM OXIDE 500 MG PO ×2 (08:02→19:40)
[2024-08-22] MEDS: PROTONIX 40 MG PO (08:02)
[2024-08-22] MEDS: LOPRESSOR 12.5 MG PO ×2 (08:03→19:40)
[2024-08-22] MEDS: LOW STRENGTH ASPIRIN 81 MG PO (08:03)
[2024-08-22] MEDS: PACERONE 200 MG PO ×3 (08:04→19:40)
[2024-08-22] MEDS: SENOKOT-S 1 TABLET PO ×2 (08:04→19:40)
[2024-08-22] MEDS: LIDOCAINE 4% PATCH 1 PATCH TOPICAL (08:05)
[2024-08-22] MEDS: BACTROBAN 2% OINTMENT 1 APPLIC NASAL ×2 (08:05→19:41)
[2024-08-22] MEDS: LASIX 40 MG IV (09:20)
--- NOTE | 2024-08-22 11:06 | W.PN.CARDCBS ---
Today's Communication / Plan
-
Consider holding beta-lucas given concern for hand Raynaud's
Continue calcium channel lucas with history of radial harvest
Diuresis
Pain control
Supportive postop care
Impression / Plan
-
PCP: Marya Dior
Electro Mechanical Designer: Dr. Traylor
Impression:
Presented to [facility] 08/15/2024 with severe chest pain radiating into left arm and lightheadedness x 2 days
Hypertensive urgency
NSTEMI with Abnormal troponin, peak 1.090.
Multivessel coronary artery disease on cath 08/15/2024
s/p CABG x 4 (JOSUE to LAD, NAVARRO to ramus/OM, radial to RCA) with plated sternum 08/20/[address] chest/abd/pelvis
Hyperlipidemia
Hypertension
Hepatitis C
Prior Opioid/substance abuse
Kidney stone
History of noncompliance
Strong family history of premature CAD
Echo 08/15/2024 ([facility]): EF 48% with global hypokinesis more pronounced inferolaterally.� Concentric remodeling of LV.� Right ventricular cavity size at upper limits of normal with low normal systolic function.� Normal biatrial size.� No significant
valvular disease.
Cardiac catheterization 08/15/2024 ([facility]): LM: NL.� LAD proximal 30% followed by mid 90% stenosis.� Ramus: Proximal 95% stenosis with some ostial involvement.� Left circumflex mid 60 to 70% stenosis followed by ectatic dilation.� OM mid 70 to 80%
stenosis involving distal bifurcation.� RCA: Heavily calcified with severe disease proximal 60 to 70% and mid 80 to 90% at acute marginal
Plan:
-He has presented to [facility] 08/15/2024 with severe chest pain radiating into left arm and lightheadedness x 2 days. Abnormal troponin/NSTEMI, peak 1.090.
-Found to have multivessel coronary artery disease on cardiac catheterization.
-s/p CABG x 4 (JOSUE to LAD, NAVARRO to ramus/OM, radial to RCA) 08/20/2024
-postop MIR EF 55 to 60% with normal regional wall motion and no significant valvular disease
-Hemodynamically stable in sinus rhythm/sinus tachycardia
-Continue amiodarone prophylaxis; telemetry monitoring
-Patient complaining of bilateral hand numbness and difficulty moving with exam concerning for vasoconstriction/Raynaud's�may need to stop metoprolol given possible Raynaud's of bilateral hands. Consider use of topical nitroglycerin. Continue CCB
-Pre-statin lipids 08/16/2024 TC 254, HDL 38, LDL 194, triglycerides 111. HgA1c 5.4%. Atorvastatin 80 mg daily. Goal LDL less than 55 mg/dL
-Continue aspirin and Plavix given presentation with non-STEMI
-Chest tube management per CT surgery
-Encouraged use of incentive spirometer
-Supportive postop care
Discussed with CT surgery
HPI: Patient is a 39-year-old male with past medical history significant for hypertension, hyperlipidemia, prior opioid/substance abuse, current vaping of nicotine, hepatitis C and family history of coronary artery disease with father dying of [place] in
his early 30s who presented to [facility] on 08/15/2024 with chest pain with radiation to left arm and lightheadedness x 2 days. Patient's blood pressure on arrival 225/145. Initial EKG showed sinus rhythm with no significant changes.
Patient was found to have abnormal troponin and was placed on nitro drip, heparin drip and loaded with Plavix 600 mg and aspirin 325 mg and ED. Patient underwent urgent [facility] cardiac catheterization and was found to have multivessel
coronary artery disease. Patient then transferred to [facility] for CT surgery evaluation.
At time of this evaluation patient is on IV heparin and nitroglycerin. He is chest pain-free.
Progress Note - Electro Mechanical Designer
Subjective
Date of Service: August 22, 2024
Patient seen and examined. Overall complaining of generalized pain. Also complaining of bilateral hand stiffness/numbness/pain and difficulty moving. States that he has to look at his hands when moving them
Objective
Labs:
08/22/24 03:38
08/22/24 03:38
Labs
Hgb 10.7 g/dL (13.0-18.0) L 08/22/24 03:38
Hct 30.1 % (39.0-52.0) L 08/22/24 03:38
Plt Count 155 10^3/uL (130-400) 08/22/24 03:38
PT 16.2 Sec (11.4-14.6) H 08/20/24 13:38
INR 1.30 08/20/24 13:38
APTT 26.1 Sec (23.4-35.0) 08/20/24 13:38
Sodium 134 mmol/L (135-145) L 08/22/24 03:38
Potassium 4.7 mmol/L (3.5-5.1) 08/22/24 03:38
BUN 27 mg/dl (9-20) H 08/22/24 03:38
Creatinine 1.0 mg/dL (0.7-1.3) 08/22/24 03:38
Glucose 126 mg/dl (70-99) H 08/22/24 03:38
Vital Signs and I&O:
Vital Signs
Temp Pulse Resp BP Pulse Ox
98.5 F 90 20 114/55 95
08/22/24 08:00 08/22/24 08:03 08/22/24 08:00 08/22/24 08:03 08/22/24 08:00
Vital Signs
Temp Pulse Resp BP Pulse Ox
98.5 F 90 20 114/55 95
08/22/24 08:00 08/22/24 08:03 08/22/24 08:00 08/22/24 08:03 08/22/24 08:00
Intake & Output
08/20/24 08/21/24 08/22/24 08/23/24
06:59 06:59 06:59 06:59
Intake Total 1458.4 / 1458.4 1799.8 / 1799.8 250 / 250
Output Total 1585 / 1585 660 / 660
Balance -126.6 / -126.6 1139.8 / 1139.8 250 / 250
Physical Exam
Physical Exam
GEN: Awake alert and oriented although sleepy after pain meds. Out of bed to chair.
HEENT: supple, anicteric, mmm
LUNGS: Poor effort with decreased breath sounds at the bases. No wheezes or rales.
CV: Reg, S1/S2, no murmur, rub or gallop
CHEST: Sternotomy incision well-approximated; chest tubes/bulbs
ABD: soft, BS+, NT/ND
ext: White/bluish discoloration of bilateral hands can consistent with Raynaud's. Mild hand swelling bilaterally. Trace bilateral lower extremity edema
--- NOTE | 2024-08-22 13:44 | PN.CDI ---
CDI
- -
CDI:
Physician Documentation Request
Admit Date: 08/15/24 15:37
Dear Carlton LANGSTON,
Patient admitted with NSTEMI s/p CABG x 4.
08/15 Hgb 15.2
08/22 Hgb 10.7
Please provide in your note the diagnosis associated with the above findings:
Acute blood loss anemia
Insignificant abnormal lab findings
Other
Use of terms such as suspected, likely, concern for, or probable (associated with a specific diagnosis that is being evaluated, monitored, or treated as if it exists) are acceptable and can be coded in the inpatient setting, when documented at the
time of discharge.
Thank you,
Crystal SINGH,RN,CCDS
CDI Specialist
Available via [facility] text
Please use your independent medical judgment in providing your response.
--- NOTE | 2024-08-22 15:17 | CM ---
Reviewed chart. Met with Mr. Metz to review discharge plans. He states he is tired today. We reviewed a home visit by the Cardiothoracic Transitional Care Nurse. He is agreeable to a home visit. Prior to admission he reside with his spouse in a
one story home with one step to enter. Prior to admission he was independent with ambulation and adls. He ambulated 225 feet today. He does not have any DME in the home. He currently does not have any health insurance. Will review Good Rx. with
him. Medical work-up in progress. The discharge plan is to return home with his spouse and a home visit by the Cardiothoracic Transitional Care Nurse when medically stable.
--- NOTE | 2024-08-22 16:48 | PTCARENOTE ---
walked to IVU and back with me. did well but states he feels ' just so so weak'. placed back into the chair. ordering dinner. HR 120s with ambulation.
[2024-08-22] MEDS: NSS 500 IV (17:29)
[2024-08-22] MEDS: LIPITOR 80 MG PO (17:29)
--- NOTE | 2024-08-22 22:28 | PTCARENOTE ---
assumed care of patient @ 1900. received pt sitting in fili, AOx3. anxious, in pain. pt walked hallway at shift change. NSR on tele monitor. V wire insulated. + L ulnar pulse. B/L hands cool and cap refill > 2 seconds. pt complaining of having no
feeling in hands. Lungs clear, diminished on RA satting mid 90s. Poor appetite reportedly. belly soft, hypoactive. Voiding in bathroom. L arm radial incisions CDI., CT and sternum CDI. R IJ cordis with RAC PIV patent. rishabh given for pain. call junior
within reach .
[2024-08-23] VITALS (13 sets, daily range): BP systolic 89–138; BP diastolic 63–94; BMI 33.2
[2024-08-23] MEDS: ROXICODONE 5 MG PO ×2 (00:14→04:31)
--- NOTE | 2024-08-23 00:58 | PTCARENOTE ---
rishabh given for pain, no change in assessment
[2024-08-23 03:43] LABS: Hematocrit 25.6 % (39.0-52.0); Hemoglobin 9.1 g/dL (13.0-18.0); Mean Corp Hgb Conc. 35.5 g/dL (33.0-37.0); Mean Corpuscular Hgb 28.3 pg (27.0-31.0); Mean Corpuscular Volume 79.5 fL (80.0-94.0); Mean Platelet Volume 10.7 fL (7.4-10.4); Platelet Count 153 10^3/uL (130-400); Red Blood Cell Count 3.22 10^6/uL (4.70-6.10); Red Cell Dist. Width 12.8 % (11.5-14.5)
[2024-08-23 03:58] LABS: Blood Urea Nitrogen 24 mg/dl (9-20); Calcium 7.8 mg/dl (8.4-10.2); Carbon Dioxide 30 mmol/L (22-30); Chloride 100 mmol/L (98-107); Estimated Creatinine Clearance > 125 ml/min; Glucose 101 mg/dl (70-99); Magnesium 1.8 mg/dl (1.6-2.3); Potassium 4.1 mmol/L (3.5-5.1); Sodium 134 mmol/L (135-145); eGFR > 60.00
--- NOTE | 2024-08-23 04:00 | PTCARENOTE ---
labs drawn and sent, no change in assessment .
--- NOTE | 2024-08-23 04:38 | W.PN.CT ---
Today's Communication / Plan
-
Plan:
-No major issues overnight. Hemodynamically and neurologically intact
-Off all drips
-Cont. current meds (ASA, Amiodarone, metoprolol, Plavix, gabapentin, Toradol; minimize Narcotics)�
-On Norvasc for left radial conduit
-Increased Amiodarone to 400 mg po TID for postop tachycardia. Increase in BB limited by soft BP and addition of Norvasc and Lasix
-D/C cordis
-Wean off of O2 as tolerated�
-Ecourage use of IS�
-OOB into chair/Ambulate�
Assessment / Plan
-
CABG x 4, on pump (broussard- lad, milvia- ramus/om ao- radial � rca) by Dr. Velasquez, 08/20/24 POD#3�
Assessment:
-Multivessel CAD
-USA
-HTN
-Hypercholesterolemia
-Hypertensive urgency
-NSTEMI with Abnormal troponin
-Multivessel coronary artery disease on cath 08/15/2024
-Hiatal hernia on CT chest/abd/pelvis
-Hyperlipidemia
-Hepatitis C
-Prior Opioid/substance abuse
-Kidney stone
-History of noncompliance
-Strong family history of premature CAD
Discussed patient care with: Cardiology, Nursing, Respiratory Therapy, Pharmacy and Care Team
Subjective
Procedure
CABG x 4, on pump (broussard- lad, milvia- ramus/om ao- radial � rca) POD2�
-
Date of Service: August 23, 2024
Objective Data
-
Lab Results
08/23/24 03:30
08/23/24 03:29
PT 16.2 Sec (11.4-14.6) H 08/20/24 13:38
INR 1.30 08/20/24 13:38
APTT 26.1 Sec (23.4-35.0) 08/20/24 13:38
Vital Signs
Vital Signs
Temp Pulse Resp BP Pulse Ox
98.9 F 93 16 122/77 95
08/23/24 04:00 08/23/24 00:45 08/23/24 04:00 08/23/24 00:17 08/23/24 04:00
CT Intake/Output/Weight
08/22/24 08/22/24 08/23/24
06:59 18:59 06:59
Intake Total 480 / 1799.8 280 / 840 560 / 840
Output Total 400 / 660 750 / 1450 700 / 1450
Balance 80 / 1139.8 -470 / -610 -140 / -610
SaO2: 95 (RA)
Physical Exam
-
General: Awake, Oriented and AOx3
Cardiovascular: Regular rate & rhythm, No Murmurs and No Gallop
Respiratory: Decreased Breath Sounds (at bases, otherwise clear)
Sternum: Stable
Incision: Clean, Dry, Intact and Dressing Intact
Extremities: No Edema
Data Reviewed
-
Lab Results: Results Reviewed
Medications: Active Meds Reviewed
Chest X-Ray: Report Reviewed and Image Reviewed
ECG: Report Reviewed and Image Reviewed
[2024-08-23] MEDS: CALCIUM CHLORIDE 10% SYRINGE 60 MG IV (06:09)
[2024-08-23] MEDS: TYLENOL 1000 MG PO ×3 (06:41→22:32)
[2024-08-23] MEDS: TORADOL 15 MG IV ×3 (06:42→20:16)
[2024-08-23] MEDS: MAGNESIUM SULFATE 102 GRAMS IV (07:12)
--- NOTE | 2024-08-23 08:00 | PTCARENOTE ---
Patient care assumed from nightshift RN. Patient fully alert and oriented. OOB in chair, complains of bilateral arm pain that radiates, L ulnar pulse palpable, R Radial pulse palpable. PRN meds adjusted to control pain. NSR. Room air, lungs clear.
Ambulates with assistance x1, well tolerated. Voiding in urinal. No BM yet. RIJ cordis in place and receiving KVO, PIV also patent. Surgical incisions clean, dry, intact and well approximated.
[2024-08-23] MEDS: ULTRAM 100 MG PO ×3 (09:35→22:33)
[2024-08-23] MEDS: NEURONTIN 400 MG PO ×3 (09:36→22:32)
[2024-08-23] MEDS: LOW STRENGTH ASPIRIN 81 MG PO (09:36)
[2024-08-23] MEDS: NORVASC 2.5 MG PO (09:36)
[2024-08-23] MEDS: PLAVIX 75 MG PO (09:37)
[2024-08-23] MEDS: PACERONE 400 MG PO ×3 (09:37→22:31)
[2024-08-23] MEDS: SENOKOT-S 1 TABLET PO ×2 (09:37→20:16)
[2024-08-23] MEDS: PROTONIX 40 MG PO (09:37)
[2024-08-23] MEDS: MAGNESIUM OXIDE 500 MG PO ×2 (09:37→20:15)
[2024-08-23] MEDS: LOPRESSOR 12.5 MG PO ×2 (09:37→20:15)
[2024-08-23] MEDS: BACTROBAN 2% OINTMENT 1 APPLIC NASAL ×2 (09:38→20:15)
[2024-08-23] MEDS: LASIX 40 MG IV (09:44)
[2024-08-23] MEDS: NEURONTIN PO (09:45)
[2024-08-23] MEDS: NSS IV (10:20)
[2024-08-23] MEDS: LIDOCAINE 4% PATCH TOPICAL (10:48)
--- NOTE | 2024-08-23 12:00 | PTCARENOTE ---
Patient remains OOB in chair. Complains of 8/10 bilateral upper extremity radiating pain, given PRN medications to best control. Dr. Jerome made aware of patient pain and assessed. Patient RIJ cordis discontinued. Ambulating in hallways with minimal
assist, well tolerated. I.S encouraged.
--- NOTE | 2024-08-23 16:00 | PTCARENOTE ---
Wires cut. Patient showered and reported slight dizziness. Overall states he is feeling much better. Still complains of bilateral upper extremity pain, but has improved with PRN control. Patient downgraded to IVU
[2024-08-23] MEDS: TYLENOL 650 MG PO (18:03)
[2024-08-23] MEDS: LIPITOR 80 MG PO (18:03)
--- NOTE | 2024-08-23 21:31 | PTCARENOTE ---
Received patient at change of shift. Patient was resting in bed, awake, alert, and oriented. Patient c/o left arm pain and numbness. RN wrapped arm in heated blanket to try to relieve pain. Also administered PRN Toradol-- see JAN. BP 108/65, NSR 99,
90% on room air. Discussed care plan for the evening. Patient verbalized understanding. Call junior within reach.
[2024-08-24] MEDS: TORADOL 15 MG IV ×2 (03:09→09:15)
[2024-08-24 03:10] VITALS: BP 126/76
--- NOTE | 2024-08-24 05:45 | W.PN.CT ---
Today's Communication / Plan
-
Plan:
-No major issues overnight. Hemodynamically and neurologically intact
-Cont. current meds (ASA, Amiodarone, metoprolol, Plavix, gabapentin, Toradol; minimize Narcotics)�
-On Norvasc for left radial conduit
-Increased Amiodarone to 400 mg po TID for postop tachycardia. Increase in BB limited by soft BP and addition of Norvasc and Lasix
-F/U 2-view cxr
-Wean off of O2 as tolerated�
-Encourage use of IS�
-OOB into chair/Ambulate�
-Home today
Assessment / Plan
-
CABG x 4, on pump (broussard- lad, milvia- ramus/om ao- radial � rca) by Dr. Velasquez, 08/20/24 POD#4
Assessment:
-Multivessel CAD
-USA
-HTN
-Hypercholesterolemia
-Hypertensive urgency
-NSTEMI with Abnormal troponin
-Multivessel coronary artery disease on cath 08/15/2024
-Hiatal hernia on CT chest/abd/pelvis
-Hyperlipidemia
-Hepatitis C
-Prior Opioid/substance abuse
-Kidney stone
-History of noncompliance
-Strong family history of premature CAD
Discussed patient care with: Cardiology, Nursing, Respiratory Therapy, Pharmacy and Care Team
Subjective
Procedure
CABG x 4, on pump (broussard- lad, milvia- ramus/om ao- radial � rca) POD2�
-
Date of Service: August 24, 2024
Pt c/o left hand paresthesia, likely d/t radial/median nerve compression stemming from left radial artery harvest for CABG, otherwise feels well
Objective Data
-
PT 16.2 Sec (11.4-14.6) H 08/20/24 13:38
INR 1.30 08/20/24 13:38
APTT 26.1 Sec (23.4-35.0) 08/20/24 13:38
Vital Signs
Vital Signs
Temp Pulse Resp BP Pulse Ox
98.0 F 84 20 126/76 97
08/24/24 03:11 08/24/24 04:00 08/24/24 03:11 08/24/24 03:10 08/24/24 03:11
CT Intake/Output/Weight
08/23/24 08/23/24 08/24/24
06:59 18:59 06:59
Intake Total 560 / 840
Output Total 700 / 1450 925 / 925
Balance -140 / -610 -915 / -915
SaO2: 97 (RA)
Physical Exam
-
General: Awake, Oriented and AOx3
Cardiovascular: Regular rate & rhythm, No Murmurs, No Rub and No Gallop
Respiratory: Decreased Breath Sounds (at bases, otherwise clear)
Sternum: Stable
Incision: Clean, Dry, Intact and Dressing Intact
Extremities: No Edema
Data Reviewed
-
Lab Results: Results Reviewed
Medications: Active Meds Reviewed
Chest X-Ray: Report Reviewed and Image Reviewed
ECG: Report Reviewed and Image Reviewed
[2024-08-24] MEDS: TYLENOL 1000 MG PO (05:46)
[2024-08-24] MEDS: ULTRAM 100 MG PO (05:47)
[2024-08-24 06:00] VITALS: BMI 33.0
[2024-08-24 06:27] LABS: Hematocrit 26.6 % (39.0-52.0); Hemoglobin 9.3 g/dL (13.0-18.0); Mean Corpuscular Hgb 28.3 pg (27.0-31.0); Mean Corpuscular Volume 80.9 fL (80.0-94.0); Mean Platelet Volume 10.7 fL (7.4-10.4); Platelet Count 191 10^3/uL (130-400); Red Blood Cell Count 3.29 10^6/uL (4.70-6.10); Red Cell Dist. Width 12.6 % (11.5-14.5); White Blood Cell Count 10.4 10^3/uL (4.8-10.8)
[2024-08-24 06:35] LABS: Blood Urea Nitrogen 30 mg/dl (9-20); Calcium 8.4 mg/dl (8.4-10.2); Carbon Dioxide 29 mmol/L (22-30); Chloride 99 mmol/L (98-107); Estimated Creatinine Clearance > 125 ml/min; Glucose 101 mg/dl (70-99); Potassium 4.2 mmol/L (3.5-5.1); Sodium 137 mmol/L (135-145); eGFR > 60.00
[2024-08-24 08:14] VITALS: BP 91/61
[2024-08-24] MEDS: PLAVIX 75 MG PO (08:26)
[2024-08-24] MEDS: MAGNESIUM OXIDE 500 MG PO (08:27)
[2024-08-24] MEDS: NEURONTIN 400 MG PO (08:27)
[2024-08-24] MEDS: SENOKOT-S 1 TABLET PO (08:27)
[2024-08-24] MEDS: PACERONE 400 MG PO (08:27)
[2024-08-24] MEDS: PROTONIX 40 MG PO (08:27)
[2024-08-24] MEDS: LOPRESSOR 12.5 MG PO (08:27)
[2024-08-24] MEDS: NORVASC 2.5 MG PO (08:28)
[2024-08-24] MEDS: LOW STRENGTH ASPIRIN 81 MG PO (08:28)
[2024-08-24] MEDS: NSS IV (09:00)
[2024-08-24] MEDS: BACTROBAN 2% OINTMENT 1 APPLIC NASAL (09:14)
[2024-08-24] MEDS: LIDOCAINE 4% PATCH 1 PATCH TOPICAL (09:14)
--- NOTE | 2024-08-24 10:30 | W.DCSUMMARY ---
Discharge Summary
Discharge Data
Date of Admission: 08/15/24
Date of Discharge: 08/24/24
Total time spent discharging patient (in min): 45
-
Pending Results: No
Hospital Course
Patient was admitted on August 15 as a transfer from an outside hospital on heparin and nitro drip after NSTEMI and multivessel coronary disease were diagnosed. Patient was transferred here for ultimate bypass surgery. This was undertaken by
Eva on August 20, 2024. Please refer to his separately dictated operative report for complete details. Postoperatively the patient was transferred to the intensive care unit in stable condition on low-dose Levophed and Cardene drips. Please
note the Cardene was being used for radial artery spasm prophylaxis. Patient was subsequently extubated later that evening per protocol. Patient continued to progress well throughout the evening of postop day 0.
Postoperative day #1: Mediastinal chest tubes were removed and pleural chest tubes were placed to bulb suction. Beta-blockers were started later in the day and Strickland catheter was removed. Otherwise patient continued to progress well. He was
weaned to room air.
Postoperative day #2: Patient complaining of diffuse generalized pain with particular pain in his left hand and arm. Chest tubes were removed. Patient was given IV Lasix. There was no evidence of compartment syndrome or neurovascular compromise
of his left hand following radial artery harvest. Patient continued to complain of pain and meds were adjusted with appropriate response.
Postoperative day #3: Pain control remains a problem however with increased dosages of gabapentin as well as transitioning to Ultram the patient did report significant improvement in his symptoms. He is ambulating independently. He continues to
tolerate his Norvasc and metoprolol. He remains on room air.
Postoperative day #4: Patient is cleared for discharge to home. His pain is significantly improved. He remains independent with his ambulation. Pacing wires were cut per surgeon preference yesterday so the patient could shower. Discharge
instructions reviewed in detail with the patient his questions were answered to his satisfaction.
Please note voice-recognition software was used to dictate this discharge summary. Please excuse any grammatical or phonetic errors as result.
Discharge Plan
-
Patient Disposition: Home (Routine Discharge)
Discharge Diagnosis/Procedures: Coronary artery bypass grafting x 4, on pump (left internal mammary artery to left anterior descending, right internal mammary artery sequential to ramus and obtuse marginal, radial to right coronary artery) by
[facility], 08/20/24
-Multivessel coronary artery disease
-Unstable angina
-Hypertension
-Hypercholesterolemia
-Hypertensive urgency
-Non-ST elevated myocardial infarction with Abnormal troponin
-Multivessel coronary artery disease on cath 08/15/2024
-Hiatal hernia on CT chest/abdomen/pelvis
-Hyperlipidemia
-Hepatitis C
-Prior Opioid/substance abuse
-Kidney stone
-History of noncompliance
-Strong family history of premature coronary artery disease
Condition: Good
Diet: Low Cholesterol and Low Sodium
Activity: No strenuous activity
Driving Restrictions: Not until seen by your Dr
Specialty Instructions: Weigh Daily- Call MD for wt gain/loss 3 lbs overnight/5 lbs in 1 week
Activity Restrictions/Additional Instructions:
Please call to make appointments for Phase II Cardiac Rehab:
[facility]
[address] [place] [address]
ACTIVITY:
-No strenuous activity: no heavy lifting, pushing, pulling anything over 15 pounds for one month
-continue to use stairs as tolerated
DRIVING RESTRICTIONS:
-No driving for one month or until approved by your surgeon
WOUND CARE:
-Shower daily. Use soap & water.
-No lotions, creams or powders on incision area.
DIET:
-continue a low fat/low cholesterol diet.
-IF you are diabetic, continue carb controlled diet.
CARDIAC REHAB:
-Please make appointment to start in 5-6 weeks with your local hospital program. (See Cardiac Rehabilitation Discharge Booklet).
SPECIALTY INSTRUCTIONS:
-Weigh yourself daily. Call your physician for any weight gain/loss of 3 lbs overnight or 5 lbs in one week.
-REPORT any clicking noise or uneven appearance of your sternum to your surgeon immediately.
-If you smoke, you are instructed to quit. The [place] smoking hotline phone number is [phone]
[phone] [facility]
Referrals:
CT Transitional Care Nurse [Outside] (The Cardiothoracic Transitional Care Nurse will call you to set up a visit in 1-2 days.)
Dallas Govea MD [Family Provider] -
Dayron Velasquez MD [Active] - 09/15/24 10:15 am
Rahul Traylor MD [Active] - 10/13/24 2:00 pm
Prescriptions:
New
atorvastatin 80 mg Tablet
80 mg PO QPM Qty: 30 2RF
acetaminophen 325 mg Tablet
650 mg PO Q4HPRN PRN (Reason: mild pain,headache,temp >101F ) Qty: 60 0RF
gabapentin 400 mg Capsule
400 mg PO TID Qty: 30 0RF
amlodipine 2.5 mg Tablet
2.5 mg PO DAILY 180 Days Qty: 30 2RF
clopidogrel 75 mg Tablet
75 mg PO DAILY 365 Days Qty: 30 2RF
tramadol 50 mg Tablet
100 mg PO Q6HPRN PRN (Reason: pain) Qty: 30 0RF
aspirin 81 mg Tablet,Chewable
81 mg PO DAILY Qty: 60 0RF
metoprolol tartrate 25 mg Tablet
12.5 mg PO Q12 Qty: 30 2RF
Discharge Orders:
Discharge Patient (As Directed); Ordered 08/24/24
Ordered By: Royal Rodriguez
Care Plan Goals
Care Plan Goals:
Problem: Readiness for enhanced knowledge related to diagnosis and treatment plan
Goal: Understand your diagnosis and treatment plan needs, including medications if applicable.
Instructions: Know your diagnosis, underlying causes and treatment plan options, including medications if applicable. Consult with your health care team to learn about your diagnosis and treatment plan, including medications if applicable.
Discharge Date and Time
Print Language: MALAY
--- NOTE | 2024-08-24 11:36 | PTCARENOTE ---
d/c instructions read to pt. pt and verbalized understanding. iv and tele removed. pt left w/ belongings, instructions, scripts and belongings from room. pt left via wheelchair with staff member.
== END 2024-08-24 11:41 | disposition home or self-care (01) | DRG 236 ==
LOC: IVU 15:37
PROVIDERS: Clinical Nurse Specialist Acute Care; Nurse Practitioner Primary Care; Physician Assistant Medical; ADMITTING PHYSICIAN Internal Medicine Interventional Cardiology; ATTENDING PHYSICIAN Thoracic Surgery (Cardiothoracic Vascular Surgery); CONSULT PHYSICIAN Internal Medicine Critical Care Medicine; FAMILY PHYSICIAN Family Medicine; OTHER PHYSICIAN Internal Medicine Cardiovascular Disease; OTHER PHYSICIAN Internal Medicine Interventional Cardiology
PROC: 03BC3ZZ Excision of Left Radial Artery, Percutaneous Approach (ICD-10-PCS; 2024-08-21)
PROC: 02110A3 Bypass Coronary Artery, Two Arteries from Coronary Artery with Autologous Arterial Tissue, Open Approach (ICD-10-PCS; 2024-08-21)
PROC: 02100A9 Bypass Coronary Artery, One Artery from Left Internal Mammary with Autologous Arterial Tissue, Open Approach (ICD-10-PCS; 2024-08-21)
PROC: 5A1221Z Performance of Cardiac Output, Continuous (ICD-10-PCS; 2024-08-21)
PROC: 02100A8 Bypass Coronary Artery, One Artery from Right Internal Mammary with Autologous Arterial Tissue, Open Approach (ICD-10-PCS; 2024-08-21)
PROC: 03B00ZZ Excision of Right Internal Mammary Artery, Open Approach (ICD-10-PCS; 2024-08-21)
PROC: B24BZZ4 Ultrasonography of Heart with Aorta, Transesophageal (ICD-10-PCS; 2024-08-21)
DX: I21.4 Non-ST elevation (NSTEMI) myocardial infarction (principal); I97.190 Other postprocedural cardiac functional disturbances following cardiac surgery; R00.0 Tachycardia, unspecified; E78.00 Pure hypercholesterolemia, unspecified; I25.10 Atherosclerotic heart disease of native coronary artery without angina pectoris; F17.290 Nicotine dependence, other tobacco product, uncomplicated; R42 Dizziness and giddiness; B19.20 Unspecified viral hepatitis C without hepatic coma; Y83.2 Surgical operation with anastomosis, bypass or graft as the cause of abnormal reaction of the patient, or of later complication, without mention of misadventure at the time of the procedure; Y92.239 Unspecified place in hospital as the place of occurrence of the external cause; I73.00 Raynaud's syndrome without gangrene; I10 Essential (primary) hypertension; D64.9 Anemia, unspecified; K21.9 Gastro-esophageal reflux disease without esophagitis; M79.642 Pain in left hand; I16.0 Hypertensive urgency; K44.9 Diaphragmatic hernia without obstruction or gangrene; F11.21 Opioid dependence, in remission; Z87.442 Personal history of urinary calculi; Z90.49 Acquired absence of other specified parts of digestive tract; Z82.49 Family history of ischemic heart disease and other diseases of the circulatory system; Z91.199 Patient's noncompliance with other medical treatment and regimen due to unspecified reason; Z79.82 Long term (current) use of aspirin
CPT/HCPCS: 94727; 94729; 71045; 71046; 76815; 80048; 80053; 80061; 81003; 82248; 82330; 82565; 82805; 82810; 82947; 82962; 83036; 83735; 84132; 84134; 84302; 84484; 84520; 85014; 85018; 85027; 85049; 85610; 85730; 86803; 86850; 86900; 86901; 86920; 87070; 93005; 93312; 93320; 93325; 93880; 94002; 94010

== ENCOUNTER 2024-09-01 18:56 | Emergency (ER) | payer SELFPAY ==
[2024-09-01] VITALS (7 sets, daily range): BP systolic 90–127; BP diastolic 54–84; BMI 33.7
[2024-09-01 19:27] LABS: % Basophils 1.3 % (0-2); % Eosinophils 7.9 % (0-6); % Immature Granulocytes 0.7 % (0-0.5); % Lymphocytes 31.4 % (20.5-51.1); % Monocytes 6.4 % (1.7-9.3); % Neutrophils 52.3 % (42.2-75.2); Absolute Basophils 0.1 10^3/uL (0-0.2); Absolute Eosinophils 0.5 10^3/uL (0-0.7); Absolute Immature Granulocytes 0.1 10^3/uL (0-0.05); Absolute Lymphocytes 2.1 10^3/uL (1.2-3.4); Absolute Monocytes 0.4 10^3/uL (0.1-0.6); Absolute Neutrophils 3.5 10^3/uL (1.4-6.5); Hematocrit 30.4 % (39.0-52.0); Hemoglobin 10.7 g/dL (13.0-18.0); Mean Corp Hgb Conc. 35.2 g/dL (33.0-37.0); Mean Corpuscular Hgb 27.4 pg (27.0-31.0); Mean Corpuscular Volume 77.7 fL (80.0-94.0); Mean Platelet Volume 9.2 fL (7.4-10.4); Nucleated Red Blood Cells % 0 % (-); Platelet Count 442 10^3/uL (130-400); Red Blood Cell Count 3.91 10^6/uL (4.70-6.10); Red Cell Dist. Width 12.6 % (11.5-14.5); White Blood Cell Count 6.7 10^3/uL (4.8-10.8)
[2024-09-01 19:45] LABS: ALT (SGPT) 45 U/L (0-50); AST (SGOT) 32 U/L (17-59); Albumin 3.5 g/dl (3.5-5.0); Alkaline Phosphatase 99 U/L (38-126); Blood Urea Nitrogen 14 mg/dl (9-20); Calcium 8.7 mg/dl (8.4-10.2); Carbon Dioxide 22 mmol/L (22-30); Glucose 137 mg/dl (70-99); Sodium 136 mmol/L (135-145); Total Bilirubin 0.4 mg/dl (0.2-1.3); Total Protein 7.1 g/dl (6.3-8.2); eGFR > 60.00
[2024-09-01 19:51] LABS: Chloride 102 mmol/L (98-107)
[2024-09-01 20:28] LABS: Troponin I 0.015 ng/ml
[2024-09-01] MEDS: OFIRMEV 100 IV (20:50)
[2024-09-01] MEDS: DILAUDID 1 MG IV (21:33)
--- NOTE | 2024-09-01 21:37 | ED.GENMED ---
History of Present Illness
General
Chief Complaint: Chest Pain
Source: patient
Exam Limitations: none
Time Seen by Provider: 09/01/24 20:19
Nursing documentation reviewed up to this point in time: agreed with
History of Present Illness
History of Present Illness:
Patient status post CABG earlier this month secondary to severe coronary artery disease, discharged home 1 week ago, presents to ED secondary to worsening upper chest wall pain since being discharged home, despite taking prescribed pain medications,
including tramadol. Denies fever or chills. Denies new trauma. Denies shortness of breath. Denies nausea or vomiting. Denies dizziness. Denies loss of appetite.
Past History
Past History
ED Past Medical History: Other (Chronic back pain, hepatitis C, elevated cholesterol, previous heroin addict)
ED Past Surgical History: None
Social History
Tobacco: Smoker
Alcohol: None
Drug: Former user and IVDA
Personal: Single
Living: with family
Employment: Employed
Family History
Family History: Other (n/c)
Review of Systems
Review of Systems
Allergies reviewed?: Yes
All Other Systems: ROS reviewed and negative except as documented in HPI and ROS
Constitutional: Reports no symptoms
Respiratory: Reports no symptoms; Denies trouble breathing
Cardiac: Reports no symptoms
ABD/GI: Reports no symptoms; Denies abdominal pain, nausea or vomiting
Musculoskeletal: Reports other (Chest wall pain)
Skin: Reports no symptoms
Neurological: Reports no symptoms; Denies dizzy or weakness
Phy Exam
Physical Exam
Physical Exam:
Physical Exam
General: mild painful distress, not acutely ill. afebrile
Head: nc/at. eomi
Neck: supple. no meningeal signs.
Heart: s1/s2 regular rate and rhythm, no murmur. equal radial pulses.
Lungs: no acute respiratory distress. clear bilaterally
Abdomen: normal bowel sounds. not tender.
Neuro: alert and oriented. no focal neurological deficits
Skin: no rash. well healing surgical scar noted over midsternum, without swelling/erythema/drainage.
Psychiatric: well kept. interactive and cooperative
Extremities: no edema. no calf tenderness.
Scores
Heart Score for Chest Pain Patients
STEMI patient?: No
History: Slightly or Non-Suspicious
ECG: Normal
Age: </= 45 years
Risk Factors: >/= 3 Risk Factors or History of CAD
Troponin: </= Normal Limit
Heart Score for Chest Pain Patients: 2
Heart Score Risk: 2.5% MACE over next 6 weeks
Course
Orders/Labs/Results
Orders:
Orders
09/01/24 18:57
ECG [Electrocardiogram (*1)] Urgent
Reason for Study: Chest Pain
EKG- Treatment ONCE
09/01/24 19:15
CR Chest - 2 Views Urgent
Comment: CABG last week
Reason For Exam: chest pain, shortness of breath
09/01/24 19:18
Complete Blood Count/With Diff Urgent
Comprehensive Metabolic Panel Urgent
09/01/24 19:56
Troponin I Urgent
09/01/24 20:19
Acetaminophen 1000MG/100Ml [Ofirmev] 1,000 mg in 100 ml IV ONCE
Acetaminophen IV Indication:: ED Narcotic Naive Pt-ONCE
09/01/24 20:57
CT Angio Chest W/Wo Iv Contast [CT Chest Angio W/wo Iv Contras] Urgent
Comment:
Reason For Exam: chest pain, s/p CABG
09/01/24 21:29
HYDROmorphone [Dilaudid] 1 mg .ROUTE .STK-MED ONE
HYDROmorphone [Dilaudid] 1 mg IV NOW STA
09/01/24 22:32
Oxycodone/Acetaminophen [Percocet 5/325] 1 tablet PO NOW STA
Abnormal Lab Results
09/01/24
19:18
RBC 3.91 L 10^6/uL
(4.70-6.10)
Hgb 10.7 L g/dL
(13.0-18.0)
Hct 30.4 L %
(39.0-52.0)
MCV 77.7 L fL
(80.0-94.0)
Plt Count 442 H 10^3/uL
(130-400)
Abs Immat Gran (auto) 0.1 H 10^3/uL
(0-0.05)
Immature Gran % 0.7 H %
(0-0.5)
Eosinophils % 7.9 H %
(0-6)
Glucose 137 H mg/dl
(70-99)
09/01/24 19:18
09/01/24 19:18
Vital Signs
Initial and Last Documented VS:
Initial Vital Signs
Temp Pulse Resp BP Pulse Ox
97.8 F 95 24 127/84 95
09/01/24 19:07 09/01/24 19:07 09/01/24 19:07 09/01/24 19:07 09/01/24 19:07
Last Documented Vital Signs
Temp Pulse Resp BP Pulse Ox
97.8 F 99 24 104/70 97
09/01/24 19:07 09/01/24 22:53 09/01/24 22:53 09/01/24 22:53 09/01/24 22:50
MDM/Problems Addressed
MDM/Problems Addressed:
Patient with an unremarkable workup in ED, including blood work and CTA chest. Patient reports improvement in symptoms after treatment with pain medication. Patient's presenting symptoms likely postop pain from recent procedure.
Discussed with on-call CT surgeon, Dr. Jerome, via [facility] text. Agrees with plan to discharge patient home at this time. Patient will follow-up with his surgeon, Dr. Velasquez, upon discharge.
Patient is afebrile, hemodynamically stable, and appears comfortable, at time of discharge to the care of his . Patient will be provided with a short course of Percocet for pain control.
*EKG
Interpreted by ED Provider?: Yes
EKG Intrepretation Date: 09/01/24
Heart Rate: 93
Rate: normal
Rhythm: sinus
Randolph: normal axis
Interval: normal interval
*Critical Care Note
Total Time (30-74mins, 75-104mins- exclusive of procedures): Not Applicable
ED Attending Note
-
Portions of this chart may have been created with voice recognition software.� Occasional wrong word or��sound alike� substitutions may have occurred due to the inherent limitations of voice recognition software.
Discharge Plan
Departure
Patient Disposition: Home (Routine Discharge)
Date of Disposition: 09/01/24
Time of Disposition: 22:29
Patient with high blood pressure during this ER visit?: Yes
Condition: Fair
Discharge Problem:
Post-operative pain
Instructions: Managing pain after surgery
Prescriptions:
New
oxycodone-acetaminophen [Percocet] 5-325 mg Tablet
1 tab PO Q6HPRN PRN (Reason: pain) Qty: 12 0RF
No Action
atorvastatin 80 mg Tablet
80 mg PO QPM Qty: 30 2RF
acetaminophen 325 mg Tablet
650 mg PO Q4HPRN PRN (Reason: mild pain,headache,temp >101F ) Qty: 60 0RF
gabapentin 400 mg Capsule
400 mg PO TID Qty: 30 0RF
amlodipine 2.5 mg Tablet
2.5 mg PO DAILY 180 Days Qty: 30 2RF
clopidogrel 75 mg Tablet
75 mg PO DAILY 365 Days Qty: 30 2RF
aspirin 81 mg Tablet,Chewable
81 mg PO DAILY Qty: 60 0RF
metoprolol tartrate 25 mg Tablet
12.5 mg PO Q12 Qty: 30 2RF
tramadol 50 mg tablet
100 mg PO Q8H PRN (Reason: severe pain) Qty: 30 0RF
Referrals:
Andrew Govea MD [Family Provider] -
Dayron Velasquez MD [Active] -
Activity Restrictions/Additional Instructions:
As discussed, please follow-up with your CT surgeon for further evaluation and treatment. Your prescription has been sent electronically to [facility] pharmacy in [place].
Interventions
Interventions:
*Risk Screen - Suicide Last Done: 09/01/24 18:59
*General Assessment Last Done: 09/01/24 18:59
*Neglect/Abuse Screening Last Done: 09/01/24 18:59
*ED COVID-19 Vaccine History Last Done: 09/01/24 19:57
*Nursing Disposition Last Done: 09/01/24 23:16
ED- Cardiac Assessment Last Done: 09/01/24 19:24
Discharge Date and Time
Discharge Date/Time: 09/01/24 23:18
Print Language: FAROESE
[2024-09-01] MEDS: PERCOCET 5/325 1 TABLET PO (22:52)
== END 2024-09-01 23:18 | disposition home or self-care (01) ==
LOC: EMR 18:56
PROVIDERS: EMERGENCY PHYSICIAN Emergency Medicine; FAMILY PHYSICIAN Family Medicine
DX: G89.18 Other acute postprocedural pain (principal); I25.10 Atherosclerotic heart disease of native coronary artery without angina pectoris; G89.29 Other chronic pain; E78.00 Pure hypercholesterolemia, unspecified; F17.200 Nicotine dependence, unspecified, uncomplicated; Z86.19 Personal history of other infectious and parasitic diseases; Z95.1 Presence of aortocoronary bypass graft
CPT/HCPCS: 99284; 96374; 96375; 71046; 71275; 80053; 84484; 85025; 93005; Q9967

== ENCOUNTER → 2024-11-03 09:04 | Outpatient (REF) | payer OTHER, SELFPAY | LOC: DHVS 09:04 | PROVIDERS: ATTENDING PHYSICIAN Registered Nurse | DX: I75.023 Atheroembolism of bilateral lower extremities (principal); I73.00 Raynaud's syndrome without gangrene | CPT/HCPCS: 93922; 93925 ==